=== PATIENT | male | born 1990 | race Two or more races ===

== ENCOUNTER 2024-11-13 22:20 | Inpatient (IN) | payer MEDICAID, SELFPAY ==
[2024-11-13 22:22] VITALS: BMI 21.7
[2024-11-13 22:38] VITALS: BP 107/67; PULSE 106; RESP 20; TEMP 36.5; O2SAT 98
--- NOTE | 2024-11-13 22:50 | XR_ITS ---
Examination: Toes, left foot fourth digit 3 views Technique: Toes AP oblique lateral 3 views left foot fourth digit Date and time of exam: November 13, 2024 11:55 PM INDICATIONS: Redness swelling and pain involving the fourth digit today FINDINGS: Prominent bone destruction distal phalanx fourth digit No foreign body IMPRESSION: Osteomyelitis distal phalanx fourth digit
--- NOTE | 2024-11-13 22:50 | EKG_ITS ---
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
--- NOTE | 2024-11-13 22:50 | XR_ITS ---
Examination: AP chest single view TECHNIQUE: Portable AP upright chest single view Date and time: November 13, 2024, 11:50 PM INDICATIONS: Chest pain weakness today. FINDINGS: Normal heart size. The lungs are clear. The osseous structures are intact. IMPRESSION: No active disease.
--- NOTE | 2024-11-13 22:52 | EDRME_ITS ---
Rapid Medical Screening Exam [facility] Arrival date/time: 11/13/24 22:20 34M with no significant PMH presents to ED with 1 week of L ring toe pain and non-healing wound after something fell on it. Patient has not had a tetanus shot in the past 5 years. Patient now also has MOSQUERA, dizzines, fevers/chills, CP, and SOB. Patient denies URI symptoms. Patient states strong family history of DM and he thinks he has it too, but he doesn't go to any PCP. Chief Complaint: General Adult/Misc Complain Vital signs: Vital Signs Temperature 97.7 F 11/13/24 22:38 Pulse Rate 106 H 11/13/24 22:38 Respiratory Rate 20 11/13/24 22:38 Blood Pressure 107/67 11/13/24 22:38 Pulse Oximetry (%) 98 11/13/24 22:38 Oxygen Delivery Method Room Air 11/13/24 22:38
[2024-11-13 23:26] LABS: Lactate (Lactic Acid) 1.8 mMol/L (0.4-2.0)
[2024-11-13] MEDS: DIPHTH,PERTUSS(ACELL),TET VAC 0.5 ML SYR- ADULT IMi (23:36)
[2024-11-13 23:38] LABS: Basophils # (Auto) 0.0 Thou/mm3 (0.0-0.2); Basophils % (Auto) 0 % (0-2.5); Eosinophils # (Auto) 0.0 Thou/mm3 (0.0-0.5); Eosinophils % (Auto) 0 % (0-10); Hematocrit 34.2 % (41.0-53.0); Hemoglobin 12.6 g/dL (13.5-16.0); Immature Granulocytes Auto 0.04 Thou/mm3 (0.00-0.00); Lymphocytes # (Auto) 1.5 Thou/mm3 (1.0-4.8); Lymphocytes % (Auto) 14 % (10-50); Mean Corpuscular HGB Conc 36.8 g/dl (31.0-37.0); Mean Corpuscular Hemoglobin 29.1 pg (25.0-35.0); Mean Corpuscular Volume 79 fL (80-100); Monocytes # (Auto) 0.8 Thou/mm3 (0.0-0.8); Monocytes % (Auto) 7 % (0-12); Neutrophils # (Auto) 8.2 Thou/mm3 (1.8-7.7); Neutrophils % (Auto) 78 % (37-80); Nucleated Red Blood Cell # 0.00 Thou/mm3 (0.00-0.00); Nucleated Red Blood Cell % 0 /100 WBC (0); Platelet Count 360 Thou/mm3 (140-440); RDW Standard Deviation 33.3 fL (35.1-43.9); Red Blood Count 4.33 Miln/mm3 (4.50-5.90); White Blood Count 10.5 Thou/mm3 (3.8-10.6)
[2024-11-13 23:48] LABS: Glucose Estimated Average 278 mg/dL (80-131); Hemoglobin A1C 11.3 % Hgb (4.8-6.0)
[2024-11-14] VITALS (18 sets, daily range): BP systolic 99–149; BP diastolic 61–101; PULSE 81–108; RESP 12–100; TEMP 36.1–37.8; O2SAT 96–100; BMI 24.2; BMI 24.1
[2024-11-14 00:03] LABS: Alanine Aminotransferase 11 U/L (10-49); Albumin, Serum 4.4 gm/dL (3.5-5.0); Albumin/Globulin Ratio 1.4 (1.2-2.2); Alcohol, Blood Medical < 3.0 mg/dL (0-10.0); Alkaline Phosphatase 103 U/L (46-116); Anion Gap 10 (7-16); Aspartate Amino Transferase 13 U/L (0-34); BUN/Creatinine Ratio 12 Ratio (12-20); Bilirubin,Total 0.8 mg/dL (0.3-1.2); Blood Urea Nitrogen 19 mg/dL (9-23); C-Reactive Protein 2.8 mg/dL (0.0-0.9); Calcium 9.8 mg/dL (8.3-10.6); Calcium (Corrected) 9.8 mg/dL (8.5-10.1); Carbon Dioxide 25.6 mMol/L (20.0-31.0); Chloride 96 mMol/L (98-107); Creatinine (Component) 1.6 mg/dL (0.6-1.3); Estimated Creatinine Clearance 66.8 mL/min (>60); Globulin 3.1 gm/dL (2.3-3.5); Glucose 359 mg/dL (74-106); Osmolality,Calculated 280 (275-295); Potassium 4.0 mMol/L (3.4-5.1); Procalcitonin 0.07 ng/ml (0.0-0.49); Sodium 132 mMol/L (136-145); Total Protein 7.5 gm/dL (5.7-8.2); Troponin I < 0.020 ng/mL (0.0-0.045); eGFR 58 See Note
[2024-11-14 00:15] LABS: Sed Rate (ESR) 64 mm/hr (0-15)
--- NOTE | 2024-11-14 01:33 | PD.EDHA ---
ED Headache RME/HPI General Chief Complaint: General Adult/Misc Complain Stated Complaint: HEADACHE,DIZZY,BODYACHES, LEFT FOOT PAIN Arrival date/time: 11/13/24 22:20 RME / HPI RME / HPI Narrative: 11/13/24 22:20 34M with no significant PMH presents to ED with 1 week of L ring toe pain and non-healing wound after something fell on it. Patient has not had a tetanus shot in the past 5 years. Patient now also has MOSQUERA, dizzines, fevers/chills, CP, and SOB. Patient denies URI symptoms. Patient states strong family history of DM and he thinks he has it too, but he doesn't go to any PCP. Dr. Blanton?s Main ED Evaluation: 34yo male presents to the ED for a chief complaint of non-healing wound to his left 4th toe. Patient states he fell last week and has since had a wound to his left 4th toe that won't heal. Patient endorses having pus and bloody drainage from the toe. Patient has had subjective fevers, chills, and sweating for the last 4 days. Familial history of DM. Denies any N/V or any other associated symptoms. NKA. Related Data Allergies Allergy/AdvReac Type Severity Reaction Status Date / Time No Known Allergies Allergy Verified 11/13/24 22:22 Review of Systems Review of Systems Systems Reviewed: All systems reviewed, normal except as documented Past Medical History Social History SMOKING STATUS: Never smoker ED Exam Narrative Physical exam: GENERAL APPEARANCE: alert and oriented x 4, well-developed, well-nourished, no acute distress VITALS: All vitals were reviewed and the pulse ox is 98% on room air, which is normal according to my interpretation. HEENT: Normocephalic, atraumatic; pupils equal, round, reactive to light; EOMI; mucous membranes pink, moist; oropharynx clear NECK: Supple LUNGS: CTABL; no wheezes, no rales, no rhonchi HEART: Regular rate, regular rhythm; normal S1, S2; no murmurs ABDOMEN: non distended; normal BS; soft, no tenderness, no guarding, no rebound; no masses, no organomegaly, no hernia BACK: no CVA tenderness EXTREMITIES: macerated erythematous, edematous left 4th toe; no edema NEUROLOGIC: awake; alert and oriented x4; cranial nerves II-XII grossly intact; no focal sensory or motor deficits PSYCHIATRIC: appropriate mood and affect SKIN: warm, dry, normal color; no rashes Course Quality Measures none Orders Category Date Time Status EKG (ED ONLY) *Do not use* NOW Care 11/13/24 22:51 Completed Insert IV NOW Care 11/13/24 22:50 Active Wound Care NOW Care 11/13/24 22:54 Active EKG (ED Only) Stat Exams 11/13/24 22:50 Draft XR chest 1V portable Stat Exams 11/13/24 22:50 Taken XR toe LT min 2V Stat Exams 11/13/24 22:50 Taken A1C [Glycohemoglobin w (eAG)] Stat Lab 11/13/24 23:12 Completed Alcohol, Blood Medical Stat Lab 11/13/24 23:12 Completed Blood Culture (Lab) Stat Lab 11/13/24 23:16 Received CBC Stat Lab 11/13/24 23:12 Completed CMP [Comprehensive Metabolic Panel] Stat Lab 11/13/24 23:12 Completed CRP [C-Reactive Protein] Stat Lab 11/13/24 23:12 Completed Drug Screen,Urine Stat Lab 11/13/24 01:37 Received ESR [Sed Rate (ESR)] Stat Lab 11/13/24 23:12 Completed Lactate (Lactic Acid) Stat Lab 11/13/24 23:12 Completed Procalcitonin Stat Lab 11/13/24 23:12 Completed Troponin I Stat Lab 11/13/24 23:12 Completed TET,DIP/PERT AC (Adult)-Tdap [Boostrix Adult (Tdap) Med 11/13/24 22:50 Discontinued Vacc] 0.5 ml IMI .ONCE ONE Vital Signs Vital signs: Vital Signs Temperature 97.7 F 11/13/24 22:38 Pulse Rate 106 H 11/13/24 22:38 Respiratory Rate 20 11/13/24 22:38 Blood Pressure 107/67 11/13/24 22:38 Pulse Oximetry (%) 98 11/13/24 22:38 Oxygen Delivery Method Room Air 11/13/24 22:38 Headache MDM Narrative MDM Narrative:: Scribe Attestation: 11/14/24 Mei Flores am scribing for and in the presence of Dr. Blanton. Patient data External records reviewed:: [facility] previous records (Per chart review, patient has no previous ED visits or admissions to this facility.) Clinical information provided by:: patient Social determinants that could affect healthcare access:: none Patient has the following chronic illnesses:: none How is presenting disease/condition affected by chronic disease/condition?: no chronic disease Evaluation data The following diagnostics were reviewed and interpreted by me:: lab results and radiology exam(s) Lab and/or radiology exams considered but not ordered:: none Interpretation Summary: CBC normal, ESR 64, Sodium 132, Creatinine 1.6, Glucose 259, A1c 11.3, CRP 2.8, Lactic Acid normal, Procalcitonin normal. Left toe x-ray shows bone destruction of the distal phalanx of the 4th toe, no fracture, no dislocation, according to my interpretation. CXR is negative for any infiltrates, cardiomegaly, pleural effusions or any other acute cardiopulmonary findings, according to my interpretation. EKG done at 2340, sinus tachycardia, rate of 105, normal intervals, normal axis, no acute ischemia, according to my interpretation. Medications / Prescriptions Medications or Prescriptions considered but not ordered:: none Medication administrations:: Medication Administration History Discontinued Medications Diphtheria/Tetanus/Acell Pertussis (Diphth,Pertuss(Acell),Tet Vac 0.5 Ml Syr- Adult) 0.5 ml IMi .ONCE ONE Stop: 11/13/24 22:51 Last Admin: 11/13/24 23:36 Dose: 0.5 ml Documented By: see above Consultations Consultation(s) initiated? (list below): Yes Consultation #1 (Physician, Specialty, Details): Discussed case with the resident physician, attending Dr. Gross from Hospitalist service regarding admission. Discussed patients ED course, exam findings, labs, and radiology results. The Hospitalist agrees to accept the patient for admission. Time: 01:58 Diagnosis Differential diagnosis headache: other (osteomyelitis, cellulitis, gangene) Most likely diagnosis given after review of the tests above:: see clinical impression below Admission Indicated Admission indicated?: indicated Admission Request Was there a request for admission?: Yes Admission Attestation Admission request attestation: Discussed case with [] from Hospitalist service regarding admission. Discussed patients ED course, exam findings, labs, and radiology results. The Hospitalist [agrees,declines] to accept the patient for admission. Disposition Plan Disposition Plan: Admit Discharge Plan Plan Patient Disposition: Admit Acute Care w/in Hospital Prescriptions/Referrals Referrals: No Primary/Family,Physician [Primary Care Provider] - In 1 week Problem List Clinical Impression: Diabetic foot ulcer, Osteomyelitis Patient/Caregiver Discharge Instructions Print Language: Divehi Stand Alone Forms: [facility] Award Info., Patient Portal Info Letter
[2024-11-14 01:57] LABS: Amphetamine/Methamp Scrn,U Negative (Negative); Barbiturate Screen,Urine Negative (Negative); Benzodiazepines Screen,Urine Negative (Negative); Benzoylecgonine Screen, Ur Negative (Negative); Fentanyl Screen,Urine Negative (Negative); Opiate Screen,Urine Negative (Negative); THC Screen,Urine Negative (Negative)
[2024-11-14] MEDS: PIPER/TAZO 3.375 GM PREMIX 3.375 GM/50 ML BAG IV ×4 (02:18→22:12)
[2024-11-14] MEDS: SODIUM CHLORIDE 0.9% 1000 ML 1,000 ML 999 ML IV (02:20)
--- NOTE | 2024-11-14 02:21 | PD.RESHP ---
Documentation for date of: 11/14/24 HPI History of Present Illness Chief complaint: Diabetic foot infection History of present illness: 34-year-old male with no past medical history who presented to the ED due to a wound on his foot. Patient states that he was at work and a box fell on his left lower extremity. He has had things fall on his foot before and states that usually heals pretty quickly however this time he noticed that the wound has not been healing appropriately and is beginning to smell developing blisters. He states he barely felt it and ignored it but then later he noticed his toes were getting red and swollen and then on he started developing fevers and chills as well as nausea and pain in the extremity described as stabbing like. He states that to the continued swelling he is unable to bear weight or put pressure on the left foot. He also endorses having headaches, shortness of breath and some blurry vision. However denies any palpitations, chest pain, sick contacts, recent travel, vomiting, abdominal pain. When asked about diabetes patient states he has never been tested for it or for any other medical conditions. Here in the ED patient was found with an A1c of 11.3. ED course: ED vitals: BP 107/67, HR 106, saturating 98% on room air ED labs: Microcytic anemia, ESR 64, sodium 132, chloride 96, creatinine 1.6, glucose 359, A1c 11.3, CRP 2.8, Pro-Derek negative. Foot x-ray seems to be cortical bone destruction of 5th and 4th metatarsal per my interpretation Chest x-ray no active disease, EKG sinus rhythm PMHx: As above SX Hx: None Social Hx: Denies cigarette use, denies alcohol use, denies illicit substances including THC FH X: Unknown Review of Systems Review of Systems Systems Reviewed: All systems reviewed, normal except as documented Narrative Review of Systems: All 12 systems reviewed and found negative unless otherwise stated in HPI. Exam Vital Signs Temp Pulse Resp BP Pulse Ox O2 Del Method 98.8 F 101 H 18 131/84 H 99 Room Air 11/14/24 01:40 11/14/24 01:40 11/14/24 01:40 11/14/24 01:40 11/14/24 01:40 11/14/24 01:40 Narrative Exam Physical Exam GENERAL: NAD, AAOx3 HEENT: Moist mucosa. Eyes open, symmetrical, & clear CARDIO: Heart RRR, no obvious murmurs PULM: No noted coughing/dyspnea CTA B/L, no R/W/R GI: Abdomen soft, nondistended, no pain on palpation. BSx4 SKIN/MSK/EXT: Left lower extremity 4th and 5th metatarsals look necrotic, with blisters and pus around the toes, no pain on palpation. Pedal pulses present B/L NEURO: AAOx3, no focal neuro deficits, able to move all 4 extremities Results: Labs 11/14/24 04:10 11/14/24 04:10 Labs: Short CBC 11/13/24 Range/Units 23:12 WBC 10.5 (3.8-10.6) Thou/mm3 Hgb 12.6 L (13.5-16.0) g/dL Hct 34.2 L (41.0-53.0) % Plt Count 360 (140-440) Thou/mm3 BMP 11/13/24 23:12 Sodium 132 L Potassium 4.0 Chloride 96 L Carbon Dioxide 25.6 BUN 19 Creatinine 1.6 H Glucose 359 H Calcium 9.8 Cardiac Enzymes 11/13/24 Range/Units 23:12 Troponin I < 0.020 (0.0-0.045) ng/mL Liver Function 11/13/24 Range/Units 23:12 Total Bilirubin 0.8 (0.3-1.2) mg/dL AST 13 (0-34) U/L ALT 11 (10-49) U/L Alkaline Phosphatase 103 (46-116) U/L Albumin 4.4 (3.5-5.0) gm/dL Quality Measures Quality Measures none Medications Home Medications and Allergies Allergies Allergy/AdvReac Type Severity Reaction Status Date / Time No Known Allergies Allergy Verified 11/13/24 22:22 Visit Medications Acetaminophen (Acetaminophen 325 Mg Tablet) 650 mg PO Q6H PRN PRN Reason: Fever >99.5 Stop: 12/14/24 02:18 Acetaminophen (Acetaminophen 325 Mg Tablet) 1,000 mg PO Q6H PRN PRN Reason: PAIN SCALE 1-3 (mild Stop: 12/14/24 02:18 Dextrose (Dextrose 50%-Water Inj 50 Ml Syringe) 25 ml IV Q15MIN PRN PRN Reason: BG 50-70 responsive npo pt Stop: 12/14/24 02:15 Dextrose (Dextrose 50%-Water Inj 50 Ml Syringe) 50 ml IV Q15MIN PRN PRN Reason: BG <50 OR BG <70 & pt unresponsive Stop: 12/14/24 02:15 Glucagon (Glucagon Inj 1 Mg Vial) 1 mg IM Q15MIN PRN PRN Reason: BG <70, and no IV access Vancomycin HCl 1,000 mg/ (Sodium Chloride) 250 mls @ 150 mls/hr IV X1 ONE Stop: 11/14/24 03:35 Piperacillin/Tazobactam/Dextrose (Zosyn) 3.375 gm in 50 mls @ 100 mls/hr IV X1 ONE Stop: 11/14/24 02:25 Last Admin: 11/14/24 02:18 Dose: 100 mls/hr Sodium Chloride (Ns) 1,000 mls @ 999 mls/hr IV .Q1H1M ONE Stop: 11/14/24 02:57 Last Admin: 11/14/24 02:20 Dose: 999 mls/hr Piperacillin/Tazobactam/Dextrose (Zosyn) 50 mls @ 100 mls/hr IV Q8HR JESSICA Stop: 11/21/24 02:16 Sodium Chloride (Ns) 1,000 mls @ 100 mls/hr IV .Q10H JESSICA Stop: 11/14/24 12:29 Insulin Human Lispro (Insulin Lispro (Admelog) 1 Unit/0.01 Ml Unit) 0 unit SC AC JESSICA; Protocol Stop: 12/14/24 07:29 Morphine Sulfate (Morphine Sulf Inj 10 Mg/Ml Vial) 2 mg IVP Q4H PRN PRN Reason: PAIN SCALE 4-10(Mod-Sev Stop: 11/19/24 02:18 Ondansetron HCl (Ondansetron Inj 2 Mg/Ml Inj 2 Ml) 4 mg IVP Q6H PRN; Protocol PRN Reason: NAUSEA OR VOMITING Stop: 12/14/24 02:18 Pharmacy Consult (Vancomycin Pharmacy To Dose 1 Each Each) 1 each IV QDAY JESSICA Stop: 12/14/24 08:59 Discontinued Medications Diphtheria/Tetanus/Acell Pertussis (Diphth,Pertuss(Acell),Tet Vac 0.5 Ml Syr- Adult) 0.5 ml IMi .ONCE ONE Stop: 11/13/24 22:51 Last Admin: 11/13/24 23:36 Dose: 0.5 ml Assessment & Plan Plan 34-year-old male with past medical history that was stated above who presented to the ED with left foot infection. #Diabetic foot infection #?Osteomyelitis of fourth metatarsal Patient had a box fall on his foot became red and swollen and was not healing appropriately, he states he has had injuries on his foot before and it healed just fine however this time it was not healing appropriately Swelling and redness has gotten so bad that he is unable to put pressure on it Patient discovered he was diabetic here in the ER. Per foot x-ray ? Vancomycin ? Zosyn ? Follow-up cultures ? IV fluids ? Surgery consulted, appreciate recs #New onset diabetes mellitus type 2 Last A1c: 11.3 ? SSI ? Hypoglycemia protocol in place ? Registered dietitian consult ? Diabetic counseling #Acute Kidney injury ? on IVF ? Avoid nephrotoxins ? Renally dose medications Health Maintenance: Disposition: MedSurg Fluids: NS Feeding: N.p.o. Thrombo prophylaxis: SCDs Gastric Ulcer prophylaxis: Not indicated CODE STATUS: DNR Case discussed with my attending Dr. Abhi Sanchez MD PGY-1 Disclaimer: Despite multiple revisions, due to the dictation software being used, the document bellow may not be free of grammatical errors including phonetic/typographic errors. However, this does not deter from our commitment to providing health care in the patient's best interest in mind. Attending Provider Attestation/Addendum 34-year-old male patient with newly diagnosed diabetes mellitus, DANIAL was admitted for diabetic foot infection osteomyelitis involving the left fourth metatarsal. Patient will receive IV antibiotic treatment. Diabetes education to be provided. I discussed with and supervised the resident physician who took care of this patient. I agree with the assessment and plan as above.
[2024-11-14] MEDS: Vancomycin Inj 1,000 MG in SODIUM CHLORIDE 0.9% 250 ML 250 ML 150 MG IV (02:38)
[2024-11-14] MEDS: ACETAMINOPHEN 325 MG TABLET 650 MG PO ×2 (02:45→19:22)
[2024-11-14] MEDS: SODIUM CHLORIDE 0.9% 1000 ML 1,000 ML 100 ML IV (02:45)
[2024-11-14 04:41] LABS: Basophils # (Auto) 0.0 Thou/mm3 (0.0-0.2); Basophils % (Auto) 0 % (0-2.5); Eosinophils # (Auto) 0.1 Thou/mm3 (0.0-0.5); Eosinophils % (Auto) 1 % (0-10); Hematocrit 31.2 % (41.0-53.0); Hemoglobin 11.6 g/dL (13.5-16.0); Immature Granulocytes Auto 0.03 Thou/mm3 (0.00-0.00); Lymphocytes # (Auto) 2.1 Thou/mm3 (1.0-4.8); Lymphocytes % (Auto) 24 % (10-50); Mean Corpuscular HGB Conc 37.2 g/dl (31.0-37.0); Mean Corpuscular Hemoglobin 29.3 pg (25.0-35.0); Mean Corpuscular Volume 79 fL (80-100); Monocytes # (Auto) 0.9 Thou/mm3 (0.0-0.8); Monocytes % (Auto) 10 % (0-12); Neutrophils # (Auto) 5.8 Thou/mm3 (1.8-7.7); Neutrophils % (Auto) 65 % (37-80); Nucleated Red Blood Cell # 0.00 Thou/mm3 (0.00-0.00); Nucleated Red Blood Cell % 0 /100 WBC (0); Platelet Count 334 Thou/mm3 (140-440); RDW Standard Deviation 33.2 fL (35.1-43.9); Red Blood Count 3.96 Miln/mm3 (4.50-5.90); White Blood Count 9.0 Thou/mm3 (3.8-10.6)
[2024-11-14 05:03] LABS: Alanine Aminotransferase 9 U/L (10-49); Albumin, Serum 4.0 gm/dL (3.5-5.0); Albumin/Globulin Ratio 1.7 (1.2-2.2); Alkaline Phosphatase 89 U/L (46-116); Anion Gap 9 (7-16); Aspartate Amino Transferase 12 U/L (0-34); BUN/Creatinine Ratio 16 Ratio (12-20); Bilirubin,Total 0.7 mg/dL (0.3-1.2); Blood Urea Nitrogen 19 mg/dL (9-23); Calcium 9.0 mg/dL (8.3-10.6); Calcium (Corrected) 9.0 mg/dL (8.5-10.1); Carbon Dioxide 26.6 mMol/L (20.0-31.0); Chloride 97 mMol/L (98-107); Creatinine (Component) 1.2 mg/dL (0.6-1.3); Estimated Creatinine Clearance 89.0 mL/min (>60); Globulin 2.3 gm/dL (2.3-3.5); Glucose 268 mg/dL (74-106); Magnesium 1.9 mg/dL (1.6-2.6); Osmolality,Calculated 277 (275-295); Potassium 3.5 mMol/L (3.4-5.1); Sodium 133 mMol/L (136-145); Total Protein 6.3 gm/dL (5.7-8.2); eGFR > 60 See Note
--- NOTE | 2024-11-14 08:50 | PD.SURCONS ---
HPI Consult details History of present illness: 34M presented with no known PMH with swelling and discoloration of left fourth toe and findings of A1c 11. Pt states he hurt his foot a week ago and since then it has become increasingly painful and swollen prompting him to seek care in ER. He has also been feeling fever and malaise PMH: Newly diagnosed DMII PShx: None Meds: None Allergies: NKDA Social hx: Nonsmoker Family hx: DMII Review of Systems Review of Systems ROS Unobtainable: All systems reviewed & no additional complaints except as documented Meds Home Medications and Allergies Home Medications ?Medication ?Instructions ?Recorded ?Confirmed ?Type No Known Home Medications 11/14/24 11/14/24 History Allergies Allergy/AdvReac Type Severity Reaction Status Date / Time No Known Allergies Allergy Verified 11/13/24 22:22 Exam Vital Signs Temp Pulse Resp BP Pulse Ox O2 Del Method 97.0 F 81 18 126/80 99 Room Air 11/14/24 06:30 11/14/24 06:30 11/14/24 06:30 11/14/24 06:30 11/14/24 06:30 11/14/24 06:30 Constitutional Constitutional: no acute distress Routine Respiratory Exam Respiratory: Present no resp distress Routine Extremities Exam Comments: left fourth toe edematous, erythematous and with necrosis at the tip of the toe and pus expressed with palpation Results Results: Laboratory Laboratory results: results reviewed Assessment & Plan Plan 34M with newly diagnosed DMII presenting with left fourth toe infection. I explained that incision and drainage will be helpful for the wound to heal but healing will likely take weeks to months and I emphasized the importance of glucose control. Pt expressed understanding and is agreeable with this plan I&D of left fourth toe in OR this AM
--- NOTE | 2024-11-14 08:56 | PC.SS ---
Patient Alden Sow is a 34 Year old male admitted for Diabetic Food Wound. SS met with patient at bedside to discuss discharge plan and review demographic information. Patient reports he lives at home with a roommate. Patient reports that he does not utilize any source of DME, patient is able to complete all ADL's independently. Patient reports he does not have a PCP. Choice of pharmacy is [facility]. at time of discharge patient will discharge home. Discharge plan: Home Next of kin: Father, Demar Sow [phone]
--- NOTE | 2024-11-14 08:57 | PC.NURSE ---
PATIENT ALERT AND ORIENTED TRANSFER TO SURGERY VIA GURNEY.
--- NOTE | 2024-11-14 10:02 | PD.SUROPNT ---
Date of Procedure 11/14/24 Pre Op Diagnosis Left fourth toe abscess Post Op Diagnosis Same Procedure Incision and drainage of left fourth toe Findings Left fourth toe with necrotic skin and abscess Procedure Description After discussion of risks and benefits, patient was brought to the operating room and general anesthesia was induced. He had already received preoperative antibiotics and was prepped and draped in usual sterile fashion. After timeout the existing opening on the distal aspect of the left fourth toe was extended approximately with a #11 blade. There was immediate expression of pus from which a culture was taken. The wound was probed and approximately 5 cc of pus were expressed. The wound was irrigated and the necrotic skin was removed. There was no bleeding. The wound was packed with quarter inch packing and covered with Adaptic, fluffs and Kerlix. Patient was awoken and brought to PACU in stable condition Pathology / specimen Other (Wound culture) Estimated Blood Loss 5 Surgeon Brii Hernández MD Surgical Staff Operation Date: 11/14/24 09:00 <No data on this case meets the specified criteria>
--- NOTE | 2024-11-14 10:40 | SUR.PHASEI ---
0958: Pt received in [facility] via gurlemitar. Report from Rosales ARAUZ and Dario POON. Pt obtunded. Resp even, unlabored. VS stable. Dressing to left foot dry, clean, intact. 1025: Pt more awake. Responds appropriatedly to questions asked, Resp even, unlabored. VS stable. Dressing remain dry, clean, intact. Denies pain.
[2024-11-14] MEDS: VANCOMYCIN/NS 1 GM IVPB 200 ML IV ×2 (11:02→22:58)
--- NOTE | 2024-11-14 11:10 | PC.NURSE ---
PATIENT BACK FROM SURGERY ACCOMPANIED BY JOYCE ARAUZ, PT IS ALERT AND ORIENTED ABLE TO MAKE NEEDS KNOWN. DENIES PAIN AND WOULD LIKE A SNACK.
--- NOTE | 2024-11-14 11:11 | PC.NURSE ---
DRESSING IS DRY CLEAN AND INTACT.
--- NOTE | 2024-11-14 11:17 | SUR.PHASEI ---
1043: Pt awake, but drifts off to sleep. Very easily aroused. Resp even, unlabored. VS stable. Dressing remains dry, clean, intact. Denies pain. Report to Tammi ARAUZ 3rd floor. Pt transferred to Rm [id number] in stable condition.
[2024-11-14] MEDS: INSULIN LISPRO (AdmeLOG) 1 UNIT/0.01 ML UNIT SC ×3 (11:39→22:12)
--- NOTE | 2024-11-14 13:16 | ESPR_ITS ---
Documentation for date of: 11/14/24 Subjective Subjective Interval history: Overnight admission. Seen and examined at bedside and patient appears relatively comfortable and has not required any pain medication at the time evaluation. On exam, fourth toe on left lower extremity is significantly swollen and erythematous but not currently draining. General surgery consulted and plan for incision and drainage. Infectious disease also consulted and at this time we will continue with vancomycin and Zosyn and continue blood sugar control. He has remained afebrile, CBC does not show leukocytosis, and CHEM panel showed glucose 268 with hemoglobin A1c of 11.3%. Exam Vital Signs Temp Pulse Resp BP Pulse Ox O2 Del Method O2 Flow Rate 97.8 F 83 13 107/66 97 Room Air 5 11/14/24 10:35 11/14/24 10:35 11/14/24 10:35 11/14/24 10:35 11/14/24 10:35 11/14/24 08:00 11/14/24 10:15 Narrative Exam General: AOx3, no acute distress, able to speak full sentences HEENT: NC/AT, mucous membranes moist, bilateral sclera anicteric Cardiovascular: regular rate and rhythm, S1/S2 present, no murmurs appreciated Pulmonary: clear to auscultation bilaterally, no rales/rhonchi/wheezes Abdominal: soft, non-tender, non-distended, no rebound/guarding, normal bowel sounds present Musculoskeletal: normal ROM, no peripheral edema Skin: 4th toe on LLE significantly swollen and erythematous but no discharge; warm and dry, intact, no rashes Neuro: CN II-XII intact, no focal deficits Objective Labs 11/15/24 06:17 11/14/24 04:10 Labs: Laboratory Results - last 24 hr 11/13/24 11/13/24 11/14/24 01:37 23:12 04:10 WBC 10.5 9.0 RBC 4.33 L 3.96 L Hgb 12.6 L 11.6 L Hct 34.2 L 31.2 L MCV 79 L 79 L MCH 29.1 29.3 MCHC 36.8 37.2 H RDW Std Deviation 33.3 L 33.2 L Plt Count 360 334 Neut % (Auto) 78 65 Lymph % (Auto) 14 24 Reynolds % (Auto) 7 10 Eos % (Auto) 0 1 Baso % (Auto) 0 0 Neut # (Auto) 8.2 H 5.8 Lymph # (Auto) 1.5 2.1 Reynolds # (Auto) 0.8 0.9 H Eos # (Auto) 0.0 0.1 Baso # (Auto) 0.0 0.0 Immature Gran # (Auto) 0.04 H 0.03 H Absolute Nucleated RBC 0.00 0.00 Immature Gran % 0 0 Nucleated RBC % 0 0 ESR 64 H Sodium 132 L 133 L Potassium 4.0 3.5 D Chloride 96 L 97 L Carbon Dioxide 25.6 26.6 Anion Gap 10 9 BUN 19 19 Creatinine 1.6 H 1.2 Estim Creat Clear Calc 66.8 89.0 eGFR 58 L > 60 BUN/Creatinine Ratio 12 16 Glucose [address] Glu mg/dL 278 H Hemoglobin A1c 11.3 H Calculated Osmolality 280 277 Lactic Acid 1.8 Calcium 9.8 9.0 Corrected Calcium 9.8 9.0 Magnesium 1.9 Total Bilirubin 0.8 0.7 AST 13 12 ALT 11 9 L Alkaline Phosphatase 103 89 Troponin I < 0.020 C-Reactive Prot, Quant 2.8 H Total Protein 7.5 6.3 Albumin 4.4 4.0 Globulin 3.1 2.3 Albumin/Globulin Ratio 1.4 1.7 Procalcitonin 0.07 Urine Opiates Screen Negative Urine Fentanyl Screen Negative Ur Barbiturates Screen Negative U Amphetamin/Meth Scrn Negative U Benzodiazepines Scrn Negative U Cocaine Metab Screen Negative U Marijuana (THC) Screen Negative Ethyl Alcohol < 3.0 Quality Measures Quality Measures none Assessment & Plan Assessment Current Active Medications: Generic Name Dose Route Start Last Admin Trade Name Freq PRN Reason Stop Dose Admin Acetaminophen 650 mg 11/14/24 02:19 11/14/24 02:45 Acetaminophen 325 Mg Tablet PO 12/14/24 02:18 650 mg Q6H PRN Administration Fever >99.5 Acetaminophen 1,000 mg 11/14/24 02:22 Acetaminophen 500 Mg Tablet PO 12/14/24 02:21 Q6H PRN PAIN SCALE 1-3 (mild Dextrose 25 ml 11/14/24 02:16 Dextrose 50%-Water Inj 50 Ml Syringe IV 12/14/24 02:15 Q15MIN PRN BG 50-70 responsive npo pt Dextrose 50 ml 11/14/24 02:16 Dextrose 50%-Water Inj 50 Ml Syringe IV 12/14/24 02:15 Q15MIN PRN BG <50 OR BG <70 & pt unresponsive Glucagon 1 mg 11/14/24 02:16 Glucagon Inj 1 Mg Vial IM Q15MIN PRN BG <70, and no IV access Piperacillin/Tazobactam/Dextrose 3.375 gm in 50 mls @ 100 mls/hr 11/14/24 06:15 11/14/24 07:15 Zosyn IV 11/21/24 06:14 100 mls/hr Q8HR JESSICA Administration Vancomycin/Sodium Chloride 200 mls @ 120 mls/hr 11/14/24 10:00 11/14/24 11:02 Vancomycin/Ns 1 Gm Ivpb IV 11/21/24 09:59 120 mls/hr Q12H JESSICA Administration Insulin Human Lispro 0 unit 11/14/24 17:00 Insulin Lispro (Admelog) 1 Unit/0.01 Ml Unit SC 12/14/24 16:59 ACHS JESSICA Protocol Morphine Sulfate 2 mg 11/14/24 12:25 Morphine Sulf Inj 10 Mg/Ml Vial IVP 11/19/24 02:18 Q4H PRN PAIN SCALE 4-10(Mod-Sev Ondansetron HCl 4 mg 11/14/24 02:19 Ondansetron Inj 2 Mg/Ml Inj 2 Ml IVP 12/14/24 02:18 Q6H PRN NAUSEA OR VOMITING Protocol Pharmacy Consult 1 each 11/14/24 09:00 Vancomycin Pharmacy To Dose 1 Each Each IV 12/14/24 08:59 QDAY PRN PROTOCOL Plan Alden higginbotham is a 34-year-old male with no past medical history that was admitted for left foot infection/osteomyelitis of 4th digit. #Diabetic foot infection #Osteomyelitis of fourth metatarsal s/p debridement 11/14 Presents after left toe injury approximately 1 week prior to presentation. X- ray showed osteomyelitis of distal phalanx of fourth digit. S/p incision and drainage of left fourth toe with findings of necrotic skin and abscess. ? General Surgery following, appreciate recommendations ? Daily packing changes per general surgery ? Vancomycin and Zosyn (11/14-) ? Blood cultures 11/13: Pending ? Wound culture 11/14: Pending #New onset type 2 diabetes mellitus A1c 11.3%. ? SSI ? Hypoglycemia protocol in place ? Registered dietitian consult ? Diabetic counseling #Acute kidney injury, resolved ? Avoid nephrotoxins ? Renally dose medications Hospital management: Disposition: pending ID recs and follow-up cultures Diet: carb consistent Lines: PIV DVT prophylaxis: SCDs CODE STATUS: full code ----- Plan discussed with attending physician Dr. Lincoln Newman MD PGY-1 Internal Medicine Attending Provider Attestation/Addendum I have examined the patient, reviewed labs and imaging findings, discussed the case with the resident(s), and reviewed entered orders. I agree with the plan of care as outlined in this note, with these additional summaries/recommendations: Patient seen at bedside. No acute overnight events. Patient seen status post incision and drainage of left fourth toe with necrotic skin and abscess. General surgery following. Continue pain management and IV antibiotics. Follow-up blood cultures. X-ray of the left foot unfortunately shows osteomyelitis of distal phalanx fourth digit. Consult infectious disease, recommendations appreciated. Discussed with patient we will likely have to proceed with PICC line for extended course of IV antibiotics and he would like some more time to think about this. Order ESR and CRP. Patient also diagnosed with new onset diabetes mellitus type 2. He denies previously being told he has diabetes. A1c 11.3%. Start insulin sliding scale with Accu-Cheks. Target blood sugar 140-180 while hospitalized. Diabetic education. Acute kidney injury has resolved. Patient updated on the plan and agreement. All questions answered to satisfaction. Please see residents note for additional details and management. Dr. Lincoln MD
[2024-11-14] MEDS: MORPHINE SULF INJ 10 MG/ML VIAL 2 MG IVP (13:29)
--- NOTE | 2024-11-14 16:25 | PC.DIETICIAN ---
Dietitian note: Patient was educated on dietary management of diabetes; written material was provided for future reference. His phone was compatible and physician plans on sending him home with insulin. Sensor was placed on left arm. He was also given Contour Next Ez glucometer in case the sensor is not covered. *Consider prescribing a FreeStyle Nette 3 Plus sensor Thank you
[2024-11-15] VITALS (7 sets, daily range): BP systolic 107–139; BP diastolic 67–86; PULSE 68–96; RESP 18–19; TEMP 36.1–36.8; O2SAT 96–98
[2024-11-15] MEDS: PIPER/TAZO 3.375 GM PREMIX 3.375 GM/50 ML BAG IV ×2 (05:04→13:38)
[2024-11-15 06:45] LABS: Basophils # (Auto) 0.1 Thou/mm3 (0.0-0.2); Basophils % (Auto) 1 % (0-2.5); Eosinophils # (Auto) 0.1 Thou/mm3 (0.0-0.5); Eosinophils % (Auto) 1 % (0-10); Hematocrit 33.9 % (41.0-53.0); Hemoglobin 12.4 g/dL (13.5-16.0); Immature Granulocytes Auto 0.01 Thou/mm3 (0.00-0.00); Lymphocytes # (Auto) 1.0 Thou/mm3 (1.0-4.8); Lymphocytes % (Auto) 20 % (10-50); Mean Corpuscular HGB Conc 36.6 g/dl (31.0-37.0); Mean Corpuscular Hemoglobin 29.5 pg (25.0-35.0); Mean Corpuscular Volume 81 fL (80-100); Monocytes # (Auto) 0.5 Thou/mm3 (0.0-0.8); Monocytes % (Auto) 10 % (0-12); Neutrophils # (Auto) 3.5 Thou/mm3 (1.8-7.7); Neutrophils % (Auto) 68 % (37-80); Nucleated Red Blood Cell # 0.00 Thou/mm3 (0.00-0.00); Nucleated Red Blood Cell % 0 /100 WBC (0); Platelet Count 345 Thou/mm3 (140-440); RDW Standard Deviation 34.1 fL (35.1-43.9); Red Blood Count 4.20 Miln/mm3 (4.50-5.90); White Blood Count 5.1 Thou/mm3 (3.8-10.6)
[2024-11-15 07:15] LABS: Sed Rate (ESR) 59 mm/hr (0-15)
[2024-11-15] MEDS: INSULIN LISPRO (AdmeLOG) 1 UNIT/0.01 ML UNIT SC ×4 (07:33→20:28)
[2024-11-15] MEDS: INSULIN LISPRO (AdmeLOG) 1 UNIT/0.01 ML UNIT 3 UNIT SC ×3 (07:33→16:48)
[2024-11-15 07:52] LABS: Alanine Aminotransferase < 7 U/L (10-49); Albumin, Serum 4.1 gm/dL (3.5-5.0); Albumin/Globulin Ratio 1.7 (1.2-2.2); Alkaline Phosphatase 90 U/L (46-116); Anion Gap 10 (7-16); Aspartate Amino Transferase 11 U/L (0-34); BUN/Creatinine Ratio 13 Ratio (12-20); Bilirubin,Total 0.5 mg/dL (0.3-1.2); Blood Urea Nitrogen 10 mg/dL (9-23); Calcium 9.7 mg/dL (8.3-10.6); Calcium (Corrected) 9.7 mg/dL (8.5-10.1); Carbon Dioxide 28.7 mMol/L (20.0-31.0); Chloride 98 mMol/L (98-107); Creatinine (Component) 0.8 mg/dL (0.6-1.3); Estimated Creatinine Clearance 142.8 mL/min (>60); Globulin 2.4 gm/dL (2.3-3.5); Glucose 205 mg/dL (74-106); Magnesium 1.8 mg/dL (1.6-2.6); Osmolality,Calculated 278 (275-295); Phosphorous 3.7 mg/dL (2.4-5.1); Potassium 3.9 mMol/L (3.4-5.1); Sodium 137 mMol/L (136-145); Total Protein 6.5 gm/dL (5.7-8.2); eGFR > 60 See Note
[2024-11-15 08:04] LABS: C-Reactive Protein 3.3 mg/dL (0.0-0.9)
[2024-11-15] MEDS: INSULIN GLARGINE (Lantus) 5 UNIT/0.05 ML (PER 5 UNITS) 15 UNIT SC (09:23)
--- NOTE | 2024-11-15 10:39 | ESPR_ITS ---
Documentation for date of: 11/15/24 Subjective Subjective Interval history: No acute overnight events. Seen and examined at bedside after I&D and patient states that he is tolerating well as he has no pain. However, he states that he has felt warm and experienced some episodes of chills. No recorded fevers and no leukocytosis at this time. Other labs unremarkable other than glucose of 205. Bedside sugars in the low 200s, started on glargine 15 daily and 3 units 3 times daily with meals. Pending ID recs and at this time we will de-escalate to ceftriaxone/doxycycline. Blood cultures no growth to date, surgical wound culture showing 1+ GPC on Gram stain. Exam Vital Signs Temp Pulse Resp BP Pulse Ox O2 Del Method O2 Flow Rate 98.3 F 78 18 129/81 97 Room Air 5 11/15/24 04:00 11/15/24 04:00 11/15/24 04:00 11/15/24 04:00 11/15/24 04:00 11/15/24 04:00 11/14/24 10:15 Narrative Exam General: AOx3, no acute distress, able to speak full sentences HEENT: NC/AT, mucous membranes moist, bilateral sclera anicteric Cardiovascular: regular rate and rhythm, S1/S2 present, no murmurs appreciated Pulmonary: clear to auscultation bilaterally, no rales/rhonchi/wheezes Abdominal: soft, non-tender, non-distended, no rebound/guarding, normal bowel sounds present Musculoskeletal: normal ROM, no peripheral edema Skin: RLE wrapped s/p I&D; warm and dry, intact, no rashes Neuro: CN II-XII intact, no focal deficits Objective Labs 11/16/24 04:24 11/16/24 04:24 Labs: Laboratory Results - last 24 hr 11/15/24 06:17 WBC 5.1 D RBC 4.20 L Hgb 12.4 L Hct 33.9 L MCV 81 MCH 29.5 MCHC 36.6 RDW Std Deviation 34.1 L Plt Count 345 Neut % (Auto) 68 Lymph % (Auto) 20 [place] % (Auto) 10 Eos % (Auto) 1 Baso % (Auto) 1 Neut # (Auto) 3.5 Lymph # (Auto) 1.0 [place] # (Auto) 0.5 Eos # (Auto) 0.1 Baso # (Auto) 0.1 Immature Gran # (Auto) 0.01 H Absolute Nucleated RBC 0.00 Immature Gran % 0 Nucleated RBC % 0 ESR 59 H Sodium 137 Potassium 3.9 Chloride 98 Carbon Dioxide 28.7 Anion Gap 10 BUN 10 Creatinine 0.8 Estim Creat Clear Calc 142.8 eGFR > 60 BUN/Creatinine Ratio 13 Glucose 205 H D Calculated Osmolality 278 Calcium 9.7 Corrected Calcium 9.7 Phosphorus 3.7 Magnesium 1.8 Total Bilirubin 0.5 AST 11 ALT < 7 L Alkaline Phosphatase 90 C-Reactive Prot, Quant 3.3 H Total Protein 6.5 Albumin 4.1 Globulin 2.4 Albumin/Globulin Ratio 1.7 Quality Measures Quality Measures none Assessment & Plan Assessment Current Active Medications: Generic Name Dose Route Start Last Admin Trade Name Freq PRN Reason Stop Dose Admin Acetaminophen 650 mg 11/14/24 02:19 11/14/24 19:22 Acetaminophen 325 Mg Tablet PO 12/14/24 02:18 650 mg Q6H PRN Administration Fever >99.5 Acetaminophen 1,000 mg 11/14/24 02:22 Acetaminophen 500 Mg Tablet PO 12/14/24 02:21 Q6H PRN PAIN SCALE 1-3 (mild Dextrose 25 ml 11/14/24 02:16 Dextrose 50%-Water Inj 50 Ml Syringe IV 12/14/24 02:15 Q15MIN PRN BG 50-70 responsive npo pt Dextrose 50 ml 11/14/24 02:16 Dextrose 50%-Water Inj 50 Ml Syringe IV 12/14/24 02:15 Q15MIN PRN BG <50 OR BG <70 & pt unresponsive Glucagon 1 mg 11/14/24 02:16 Glucagon Inj 1 Mg Vial IM Q15MIN PRN BG <70, and no IV access Piperacillin/Tazobactam/Dextrose 3.375 gm in 50 mls @ 100 mls/hr 11/14/24 06:15 11/15/24 05:04 Zosyn IV 11/21/24 06:14 100 mls/hr Q8HR JESSICA Administration Vancomycin/Sodium Chloride 200 mls @ 120 mls/hr 11/14/24 10:00 11/14/24 22:58 Vancomycin/Ns 1 Gm Ivpb IV 11/21/24 09:59 120 mls/hr Q12H JESSICA Administration Insulin Glargine 10 unit 11/16/24 09:00 Insulin Glargine (Lantus) 5 Unit/0.05 Ml (Per 5 Units) SC 12/16/24 08:59 QDAY JESSICA Insulin Human Lispro 0 unit 11/14/24 23:07 11/15/24 07:33 Insulin Lispro (Admelog) 1 Unit/0.01 Ml Unit SC 12/14/24 16:59 4 unit ACHS JESSICA Administration Protocol Insulin Human Lispro 3 unit 11/15/24 08:00 11/15/24 07:33 Insulin Lispro (Admelog) 1 Unit/0.01 Ml Unit SC 12/15/24 07:59 3 unit TIDWM JESSICA Administration Morphine Sulfate 2 mg 11/14/24 12:25 11/14/24 13:29 Morphine Sulf Inj 10 Mg/Ml Vial IVP 11/19/24 02:18 2 mg Q4H PRN Administration PAIN SCALE 4-10(Mod-Sev Ondansetron HCl 4 mg 11/14/24 02:19 Ondansetron Inj 2 Mg/Ml Inj 2 Ml IVP 12/14/24 02:18 Q6H PRN NAUSEA OR VOMITING Protocol Pharmacy Consult 1 each 11/14/24 09:00 Vancomycin Pharmacy To Dose 1 Each Each IV 12/14/24 08:59 QDAY PRN PROTOCOL Plan Alden higginbotham is a 34-year-old male with no past medical history that was admitted for left foot infection/osteomyelitis of 4th digit. #Diabetic foot infection #Osteomyelitis of fourth metatarsal s/p debridement 11/14 Presents after left toe injury approximately 1 week prior to presentation. X- ray showed osteomyelitis of distal phalanx of fourth digit. S/p incision and drainage of left fourth toe with findings of necrotic skin and abscess. Vancomycin and Zosyn (11/14-11/15) ? General Surgery following, appreciate recommendations ? Daily packing changes per general surgery ? Ceftriaxone 2 g daily and doxycycline (11/15-) ? Blood cultures 11/13: GPC on gram stain ? Wound culture 11/14: Pending ? Given IR not present on weekends, PICC line placement Sunday #New onset type 2 diabetes mellitus A1c 11.3%. ? Glargine 10 units, lispro 3 units TIDWM ? SSI ? Hypoglycemia protocol in place ? Registered dietitian consult ? Diabetic counseling #Acute kidney injury, resolved ? Avoid nephrotoxins ? Renally dose medications Hospital management: Disposition: pending ID recs and follow-up cultures Diet: carb consistent Lines: PIV DVT prophylaxis: SCDs CODE STATUS: full code ----- Plan discussed with attending physician Dr. Lincoln Newman MD PGY-1 Internal Medicine Attending Provider Attestation/Addendum I have examined the patient, reviewed labs and imaging findings, discussed the case with the resident(s), and reviewed entered orders. I agree with the plan of care as outlined in this note, with these additional summaries/recommendations: Patient seen at bedside. No acute overnight events. Patient has no acute complaints today. He states he received education on glucometer and freestyle terry's. Discussed with patient that overall his blood sugars are improving. Patient status post incision and drainage of left fourth toe with necrotic skin and abscess. General surgery following. Continue pain management and IV antibiotics. Intraoperative cultures pending and blood cultures preliminarily negative at 24 hours. X-ray of the left foot unfortunately shows osteomyelitis of distal phalanx fourth digit. Consult infectious disease, recommendations appreciated. Discussed with patient we will likely have to proceed with PICC line for extended course of IV antibiotics. ESR 64 and CRP 3.3. Patient also diagnosed with new onset diabetes mellitus type 2. He denies previously being told he has diabetes in the past. A1c 11.3%. Continue insulin sliding scale with Accu-Cheks. Target blood sugar 140-180 while hospitalized. Diabetic education. Acute kidney injury has resolved. Patient updated on the plan and agreement. All questions answered to satisfaction. Please see residents note for additional details and management. Dr. Lincoln MD
[2024-11-15 10:42] LABS: Vancomycin,Trough 7.1 mcg/mL (5.0-10.0)
[2024-11-15] MEDS: VANCOMYCIN/NS 1 GM IVPB 200 ML IV (11:56)
[2024-11-15] MEDS: cefTRIAXone/D5w 1gm IV premix 1 GM/50 ML BAG IV (20:28)
[2024-11-15] MEDS: DOXYCYCLINE INJ 100 MG in SODIUM CHLORIDE 0.9% (POP) 100 ML IV (21:44)
[2024-11-16 04:00] VITALS: BP 115/84; PULSE 80; RESP 18; TEMP 36.2; O2SAT 97
[2024-11-16 05:58] LABS: Basophils # (Auto) 0.0 Thou/mm3 (0.0-0.2); Basophils % (Auto) 1 % (0-2.5); Eosinophils # (Auto) 0.1 Thou/mm3 (0.0-0.5); Eosinophils % (Auto) 1 % (0-10); Hematocrit 36.1 % (41.0-53.0); Hemoglobin 12.6 g/dL (13.5-16.0); Immature Granulocytes Auto 0.01 Thou/mm3 (0.00-0.00); Lymphocytes # (Auto) 2.0 Thou/mm3 (1.0-4.8); Lymphocytes % (Auto) 36 % (10-50); Mean Corpuscular HGB Conc 34.9 g/dl (31.0-37.0); Mean Corpuscular Hemoglobin 28.8 pg (25.0-35.0); Mean Corpuscular Volume 83 fL (80-100); Monocytes # (Auto) 0.8 Thou/mm3 (0.0-0.8); Monocytes % (Auto) 14 % (0-12); Neutrophils # (Auto) 2.7 Thou/mm3 (1.8-7.7); Neutrophils % (Auto) 48 % (37-80); Nucleated Red Blood Cell # 0.00 Thou/mm3 (0.00-0.00); Nucleated Red Blood Cell % 0 /100 WBC (0); Platelet Count 374 Thou/mm3 (140-440); RDW Standard Deviation 34.5 fL (35.1-43.9); Red Blood Count 4.37 Miln/mm3 (4.50-5.90); White Blood Count 5.6 Thou/mm3 (3.8-10.6)
[2024-11-16 06:46] LABS: Alanine Aminotransferase 14 U/L (10-49); Albumin, Serum 4.0 gm/dL (3.5-5.0); Albumin/Globulin Ratio 1.3 (1.2-2.2); Alkaline Phosphatase 85 U/L (46-116); Anion Gap 7 (7-16); Aspartate Amino Transferase 19 U/L (0-34); BUN/Creatinine Ratio 10 Ratio (12-20); Bilirubin,Total 0.3 mg/dL (0.3-1.2); Blood Urea Nitrogen 9 mg/dL (9-23); Calcium 9.5 mg/dL (8.3-10.6); Calcium (Corrected) 9.5 mg/dL (8.5-10.1); Carbon Dioxide 30.3 mMol/L (20.0-31.0); Chloride 103 mMol/L (98-107); Creatinine (Component) 0.9 mg/dL (0.6-1.3); Estimated Creatinine Clearance 126.9 mL/min (>60); Globulin 3.0 gm/dL (2.3-3.5); Glucose 153 mg/dL (74-106); Magnesium 1.9 mg/dL (1.6-2.6); Osmolality,Calculated 281 (275-295); Phosphorous 3.8 mg/dL (2.4-5.1); Potassium 3.8 mMol/L (3.4-5.1); Sodium 140 mMol/L (136-145); Total Protein 7.0 gm/dL (5.7-8.2); eGFR > 60 See Note
[2024-11-16] MEDS: INSULIN LISPRO (AdmeLOG) 1 UNIT/0.01 ML UNIT SC ×3 (07:57→16:50)
[2024-11-16] MEDS: INSULIN LISPRO (AdmeLOG) 1 UNIT/0.01 ML UNIT 3 UNIT SC ×3 (07:57→16:50)
[2024-11-16 08:00] VITALS: BP 100/68; PULSE 83; RESP 16; TEMP 36.2; O2SAT 96
[2024-11-16] MEDS: DOXYCYCLINE INJ 100 MG in SODIUM CHLORIDE 0.9% (POP) 100 ML IV ×2 (09:15→20:34)
[2024-11-16] MEDS: INSULIN GLARGINE (Lantus) 5 UNIT/0.05 ML (PER 5 UNITS) 10 UNIT SC (09:16)
[2024-11-16] MEDS: cefTRIAXone/D5w 1gm IV premix 1 GM/50 ML BAG IV ×2 (09:16→20:02)
--- NOTE | 2024-11-16 11:07 | PD.RESPRO ---
Documentation for date of: 11/16/24 Subjective Subjective Interval history: Patient seen and examined at bedside. No acute overnight events. Blood sugar is well-controlled, current regimen is Lantus 15 and lispro 3 3 times daily, blood culture is remains negative, will continue with Rocephin and ceftriaxone, tomorrow Dr Kapoor will evaluate the patient. Will follow-up regarding recommendations of PICC line placement versus p.o. antibiotics. For now patient is afebrile, continue IV antibiotics and wound care continue tight sugar control and pain management as needed. Exam Vital Signs Temp Pulse Resp BP Pulse Ox O2 Del Method O2 Flow Rate 97.2 F 83 16 100/68 96 Room Air 5 11/16/24 08:00 11/16/24 08:00 11/16/24 08:00 11/16/24 08:00 11/16/24 08:00 11/16/24 04:00 11/14/24 10:15 Narrative Exam General: AOx3, no acute distress, able to speak full sentences HEENT: NC/AT, mucous membranes moist, bilateral sclera anicteric Cardiovascular: regular rate and rhythm, S1/S2 present, no murmurs appreciated Pulmonary: clear to auscultation bilaterally, no rales/rhonchi/wheezes Abdominal: soft, non-tender, non-distended, no rebound/guarding, normal bowel sounds present Musculoskeletal: normal ROM, no peripheral edema Skin: RLE wrapped s/p I&D; warm and dry, intact, no rashes Neuro: CN II-XII intact, no focal deficits Objective Labs 11/17/24 04:30 11/17/24 04:30 Labs: Laboratory Results - last 24 hr 11/16/24 04:24 WBC 5.6 RBC 4.37 L Hgb 12.6 L Hct 36.1 L MCV 83 MCH 28.8 MCHC 34.9 RDW Std Deviation 34.5 L Plt Count 374 Neut % (Auto) 48 Lymph % (Auto) 36 [place] % (Auto) 14 H Eos % (Auto) 1 Baso % (Auto) 1 Neut # (Auto) 2.7 Lymph # (Auto) 2.0 [place] # (Auto) 0.8 Eos # (Auto) 0.1 Baso # (Auto) 0.0 Immature Gran # (Auto) 0.01 H Absolute Nucleated RBC 0.00 Immature Gran % 0 Nucleated RBC % 0 Sodium 140 Potassium 3.8 Chloride 103 Carbon Dioxide 30.3 Anion Gap 7 BUN 9 Creatinine 0.9 Estim Creat Clear Calc 126.9 eGFR > 60 BUN/Creatinine Ratio 10 L Glucose 153 H D Calculated Osmolality 281 Calcium 9.5 Corrected Calcium 9.5 Phosphorus 3.8 Magnesium 1.9 Total Bilirubin 0.3 AST 19 ALT 14 Alkaline Phosphatase 85 Total Protein 7.0 Albumin 4.0 Globulin 3.0 Albumin/Globulin Ratio 1.3 Quality Measures Quality Measures none Assessment & Plan Assessment Current Active Medications: Generic Name Dose Route Start Last Admin Trade Name Freq PRN Reason Stop Dose Admin Acetaminophen 650 mg 11/14/24 02:19 11/14/24 19:22 Acetaminophen 325 Mg Tablet PO 12/14/24 02:18 650 mg Q6H PRN Administration Fever >99.5 Acetaminophen 1,000 mg 11/14/24 02:22 Acetaminophen 500 Mg Tablet PO 12/14/24 02:21 Q6H PRN PAIN SCALE 1-3 (mild Dextrose 25 ml 11/14/24 02:16 Dextrose 50%-Water Inj 50 Ml Syringe IV 12/14/24 02:15 Q15MIN PRN BG 50-70 responsive npo pt Dextrose 50 ml 11/14/24 02:16 Dextrose 50%-Water Inj 50 Ml Syringe IV 12/14/24 02:15 Q15MIN PRN BG <50 OR BG <70 & pt unresponsive Glucagon 1 mg 11/14/24 02:16 Glucagon Inj 1 Mg Vial IM Q15MIN PRN BG <70, and no IV access Doxycycline Hyclate 100 mg/ 100 mls @ 100 mls/hr 11/15/24 21:00 11/16/24 09:15 Sodium Chloride IV 11/22/24 20:59 100 mls/hr BID JESSICA Administration Ceftriaxone Sodium/Dextrose 1 gm in 50 mls @ 100 mls/hr 11/15/24 21:00 11/16/24 09:16 Rocephin/D5w 1gm Iv Premix IV 11/22/24 20:59 100 mls/hr Q12HR JESSICA Administration Insulin Glargine 10 unit 11/16/24 09:00 11/16/24 09:16 Insulin Glargine (Lantus) 5 Unit/0.05 Ml (Per 5 Units) SC 12/16/24 08:59 10 unit QDAY JESSICA Administration Insulin Human Lispro 0 unit 11/14/24 23:07 11/16/24 07:57 Insulin Lispro (Admelog) 1 Unit/0.01 Ml Unit SC 12/14/24 16:59 3 unit ACHS JESSICA Administration Protocol Insulin Human Lispro 3 unit 11/15/24 08:00 11/16/24 07:57 Insulin Lispro (Admelog) 1 Unit/0.01 Ml Unit SC 12/15/24 07:59 3 unit TIDWM JESSICA Administration Morphine Sulfate 2 mg 11/14/24 12:25 11/14/24 13:29 Morphine Sulf Inj 10 Mg/Ml Vial IVP 11/19/24 02:18 2 mg Q4H PRN Administration PAIN SCALE 4-10(Mod-Sev Ondansetron HCl 4 mg 11/14/24 02:19 Ondansetron Inj 2 Mg/Ml Inj 2 Ml IVP 12/14/24 02:18 Q6H PRN NAUSEA OR VOMITING Protocol Plan Alden higginbotham is a 34-year-old male with no past medical history that was admitted for left foot infection/osteomyelitis of 4th digit. #Diabetic foot infection #Osteomyelitis of fourth metatarsal s/p debridement 11/14 Presents after left toe injury approximately 1 week prior to presentation. X-ray showed osteomyelitis of distal phalanx of fourth digit. S/p incision and drainage of left fourth toe with findings of necrotic skin and abscess. Vancomycin and Zosyn (11/14-11/15) ? General Surgery following, appreciate recommendations ? Daily packing changes per general surgery ? Ceftriaxone 2 g daily and doxycycline (11/15-) ? Blood cultures 11/13: (-) ? Wound culture 11/14: Pending. GPC on gram stain ? Given IR not present on weekends, possible PICC line placement Sunday, however will follow up with Dr. Kapoor recommendations. #New onset type 2 diabetes mellitus A1c 11.3%. ? Glargine 10 units, lispro 3 units TIDWM ? SSI ? Hypoglycemia protocol in place ? Registered dietitian consult ? Diabetic counseling #Acute kidney injury, resolved ? Avoid nephrotoxins ? Renally dose medications Hospital management: Disposition: pending ID recs and follow-up cultures Diet: carb consistent Lines: PIV DVT prophylaxis: SCDs CODE STATUS: full code Patient care was discussed with attending physician Dr. Lincoln Britt MD PGY-2 Attending Provider Attestation/Addendum I have examined the patient, reviewed labs and imaging findings, discussed the case with the resident(s), and reviewed entered orders. I agree with the plan of care as outlined in this note, with these additional summaries/recommendations: Patient seen at bedside. No acute overnight events. Patient has no new concerns today and reports he works as a [employer]. Discussed with patient that overall his blood sugars are improving. Patient is status post incision and drainage of left fourth toe with necrotic skin and abscess. General surgery following. Continue pain management and IV antibiotics. Intraoperative cultures pending and blood cultures negative at 48 hours. X-ray of the left foot unfortunately shows osteomyelitis of distal phalanx fourth digit. Consult infectious disease, recommendations appreciated. Discussed with patient we will likely have to proceed with PICC line for extended course of IV antibiotics versus possible oral route given that patient is young and area of osteomyelitis appears small. ESR 64 and CRP 3.3. Patient also diagnosed with new onset diabetes mellitus type 2. A1c 11.3%. Continue insulin sliding scale with Accu-Cheks. Target blood sugar 140-180 while hospitalized. Diabetic education. Acute kidney injury has resolved. Patient updated on the plan and agreement. All questions answered to satisfaction. Please see residents note for additional details and management. Dr. Lincoln MD
[2024-11-16 12:00] VITALS: BP 109/74; PULSE 87; RESP 16; TEMP 36.9; O2SAT 98
[2024-11-16 13:41] LABS: Vancomycin,Trough < 3.0 mcg/mL (5.0-10.0)
[2024-11-16 16:00] VITALS: BP 112/76; PULSE 88; RESP 18; TEMP 36.4; O2SAT 99
[2024-11-16 19:43] VITALS: BP 145/87; PULSE 88; RESP 18; TEMP 36.6; O2SAT 98
[2024-11-16 23:40] VITALS: BP 131/84; PULSE 79; RESP 18; TEMP 36.2; O2SAT 96
[2024-11-17] VITALS (11 sets, daily range): BP systolic 101–138; BP diastolic 60–95; PULSE 75–87; RESP 16–22; TEMP 36–36.3; O2SAT 97–99
--- NOTE | 2024-11-17 | XR_ITS ---
Examination: Ultrasound-guided needle placement right basilic vein. Dual-lumen central line placement (PICC line). Fluoroscopy AP chest, portable, single view Exam date and time:November 17, 2024 1224 hours INDICATIONS: Need for long-term intravenous antibiotic therapy for osteomyelitis A timeout was completed verifying correct patient, procedure, site, positioning Informed consent provided Technique: The patient's site was prepped and draped in sterile fashion. Maximum Sterile Barrier Technique used including cap, mask, sterile gown, sterile gloves, and sterile full body drape. If ultrasound technique used: sterile gel and sterile probe covers. Hand Hygiene performed using proper scrub, soap and water, or alcohol-based hand rub. Site right portable ultrasound apparatus utilized to confirm patency of the right basilic vein Utilizing ultrasonographic guidance successful 21-gauge needle puncture right basilic vein Ultrasound images recorded and stored. 5 cc 1% lidocaine administered for local anesthetic. Successful micropuncture with a 21-gauge needle is performed. 0.18 wire guide is then introduced into the SVC under fluoroscopic guidance. Dual-lumen catheter dilator is then introduced, followed by the catheter in the SVC and proper position under fluoroscopic guidance. Successful aspiration of blood and flushing with heparinized saline is then performed in the 2 venous limbs. The catheter sutured in place. Findings: Under fluoroscopy, the tip of the catheter is in good position in the vena cava. Portable chest x-ray, post line placement is ordered. Estimated blood loss 3 cc The patient tolerated the procedure well and was in stable and satisfactory condition at completion of the procedure Impression: Successful ultrasound-guided needle placement right basilic vein Successful placement of dual lumen central line, percutaneous Fluoroscopy 0.2 minute radiation dose 1.12 milligray 1 spot fluoroscopic chest. AP chest completion procedure demonstrates satisfactory position central line. May use central line.
[2024-11-17 06:13] LABS: Basophils # (Auto) 0.0 Thou/mm3 (0.0-0.2); Basophils % (Auto) 1 % (0-2.5); Eosinophils # (Auto) 0.1 Thou/mm3 (0.0-0.5); Eosinophils % (Auto) 2 % (0-10); Hematocrit 35.4 % (41.0-53.0); Hemoglobin 12.6 g/dL (13.5-16.0); Immature Granulocytes Auto 0.02 Thou/mm3 (0.00-0.00); Lymphocytes # (Auto) 2.1 Thou/mm3 (1.0-4.8); Lymphocytes % (Auto) 38 % (10-50); Mean Corpuscular HGB Conc 35.6 g/dl (31.0-37.0); Mean Corpuscular Hemoglobin 29.6 pg (25.0-35.0); Mean Corpuscular Volume 83 fL (80-100); Monocytes # (Auto) 0.6 Thou/mm3 (0.0-0.8); Monocytes % (Auto) 11 % (0-12); Neutrophils # (Auto) 2.8 Thou/mm3 (1.8-7.7); Neutrophils % (Auto) 49 % (37-80); Nucleated Red Blood Cell # 0.00 Thou/mm3 (0.00-0.00); Nucleated Red Blood Cell % 0 /100 WBC (0); Platelet Count 420 Thou/mm3 (140-440); RDW Standard Deviation 35.0 fL (35.1-43.9); Red Blood Count 4.25 Miln/mm3 (4.50-5.90); White Blood Count 5.7 Thou/mm3 (3.8-10.6)
[2024-11-17 06:39] LABS: Alanine Aminotransferase 14 U/L (10-49); Albumin, Serum 4.2 gm/dL (3.5-5.0); Albumin/Globulin Ratio 1.7 (1.2-2.2); Alkaline Phosphatase 85 U/L (46-116); Anion Gap 7 (7-16); Aspartate Amino Transferase 18 U/L (0-34); BUN/Creatinine Ratio 14 Ratio (12-20); Bilirubin,Total 0.3 mg/dL (0.3-1.2); Blood Urea Nitrogen 11 mg/dL (9-23); Calcium 10.4 mg/dL (8.3-10.6); Calcium (Corrected) 10.4 mg/dL (8.5-10.1); Carbon Dioxide 30.6 mMol/L (20.0-31.0); Chloride 100 mMol/L (98-107); Creatinine (Component) 0.8 mg/dL (0.6-1.3); Estimated Creatinine Clearance 142.8 mL/min (>60); Globulin 2.5 gm/dL (2.3-3.5); Glucose 172 mg/dL (74-106); Osmolality,Calculated 279 (275-295); Phosphorous 4.4 mg/dL (2.4-5.1); Potassium 3.8 mMol/L (3.4-5.1); Sodium 138 mMol/L (136-145); Total Protein 6.7 gm/dL (5.7-8.2); eGFR > 60 See Note
[2024-11-17] MEDS: INSULIN LISPRO (AdmeLOG) 1 UNIT/0.01 ML UNIT SC ×3 (07:37→20:33)
[2024-11-17] MEDS: INSULIN LISPRO (AdmeLOG) 1 UNIT/0.01 ML UNIT 3 UNIT SC (07:37)
[2024-11-17] MEDS: INSULIN GLARGINE (Lantus) 5 UNIT/0.05 ML (PER 5 UNITS) 10 UNIT SC (08:34)
[2024-11-17] MEDS: cefTRIAXone/D5w 1gm IV premix 1 GM/50 ML BAG IV ×2 (08:35→12:07)
--- NOTE | 2024-11-17 08:37 | PC.SS ---
SS follow up note; SS contacted Tammi the financial counselor to check status on patient's medi-kip, she reported that she met with patient on Sunday and informed SS that patient is pending the [facility] patient case coordinator to contact patient. SS informed Dr. Newman that at the time patient only has [facility]. SS will stand by for further needs.
[2024-11-17] MEDS: DOXYCYCLINE INJ 100 MG in SODIUM CHLORIDE 0.9% (POP) 100 ML IV (09:02)
--- NOTE | 2024-11-17 09:25 | PD.IDPROG ---
Subjective Subjective Interval history: cx noted. low dose rocephin in play. Exam Vital Signs Temp Pulse Resp BP Pulse Ox O2 Del Method O2 Flow Rate 97 F 75 17 115/79 98 Room Air 5 11/17/24 08:00 11/17/24 08:00 11/17/24 08:00 11/17/24 08:00 11/17/24 08:00 11/17/24 08:00 11/14/24 10:15 Narrative Exam osteo of foot. cx with ox s staphL foot wrapped. removed wrapping as was old. no strike thru noted Objective - Internal Medicine Labs 11/17/24 04:30 11/17/24 04:30 Labs: Laboratory Results - last 24 hr 11/16/24 11/17/24 12:39 04:30 WBC 5.7 RBC 4.25 L Hgb 12.6 L Hct 35.4 L MCV 83 MCH 29.6 MCHC 35.6 RDW Std Deviation 35.0 L Plt Count 420 D Neut % (Auto) 49 Lymph % (Auto) 38 [place] % (Auto) 11 Eos % (Auto) 2 Baso % (Auto) 1 Neut # (Auto) 2.8 Lymph # (Auto) 2.1 [place] # (Auto) 0.6 Eos # (Auto) 0.1 Baso # (Auto) 0.0 Immature Gran # (Auto) 0.02 H Absolute Nucleated RBC 0.00 Immature Gran % 0 Nucleated RBC % 0 Sodium 138 Potassium 3.8 Chloride 100 Carbon Dioxide 30.6 Anion Gap 7 BUN 11 Creatinine 0.8 Estim Creat Clear Calc 142.8 eGFR > 60 BUN/Creatinine Ratio 14 Glucose 172 H Calculated Osmolality 279 Calcium 10.4 Corrected Calcium 10.4 H Phosphorus 4.4 Total Bilirubin 0.3 AST 18 ALT 14 Alkaline Phosphatase 85 Total Protein 6.7 Albumin 4.2 Globulin 2.5 Albumin/Globulin Ratio 1.7 Vancomycin Trough < 3.0 L Assessment & Plan A&P Narrative iv rx likely preferred, but higher dose rocephin. ok to stop doxy as no mrsa noted. only ox s staph rx to be thru 12/26 with rocephin 2 gm iv daily. not 1 gm and stop the doxy get weekly cbc, renal panel, esr on iv rx and remove line at end of rx' if crp normal tomorrow, can forego iv rx and go with keflex 1000 tid for 6 weeks with monthly cbc, renal panel, esr and f/u with podiatry. Time Spent With Patient Time: Total time spent is greater than 50% in coordination of care (as documented) at patient's floor/unit and/or counseling patient:
--- NOTE | 2024-11-17 11:38 | ESCONSULT_ITS ---
RE: MELO RODRIGUEZ : 1990 DATE OF CONSULTATION: 11/17/2024 REFERRING PHYSICIAN: Chris Moe MD REASON FOR CONSULTATION: Osteomyelitis of the left 4th toe. 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 He lives by himself in a rented room in a house presumably. His medical problems including newly discovered diabetes, A1c of 11.3 on admission, but he has no prior history of diabetes and was not taking any treatment. He has no other medical problems. PAST SURGICAL HISTORY: Surgery consists only of incision and drainage of an abscess on the right 4th toe on 11/14/[address] Hernández. ALLERGIES: NO KNOWN DRUG ALLERGIES. IMMUNIZATIONS: Last tetanus is on admission. He does not take a flu shot. He has not had a COVID vaccine. He has not had pneumococcal vaccination. FAMILY HISTORY: Positive for diabetes and hypertension. SOCIAL HISTORY: He lives alone in a rented room and was a part-time espinoza. PHYSICAL EXAMINATION: On exam, the patient is tender in the left 4th toe as suggested previously. Prior drainage is noted. He has no swelling or discoloration noted. Review of imaging shows destroyed left 4th digit distally. The distal digits are hard to see on x-ray, but with destruction of the toe, we can assume that this is probably the case. If he has amputation, the treatment should be transitioned to oral therapy, but if he does not, then we can probably continue IV therapy, but we will check a CRP tomorrow. If it is improved significantly from the prior value the other day of 3.3, then we may look at transitioning him to oral therapy with Keflex 1000 mg t.i.d. for 6 weeks. He will need to follow up with podiatry and his primary care team. He will improve his diabetic control with an A1c under 7 and he may have a better chance of success if that is the case. If his toe needs to come off, the zoning engineer could possibly do it at a later time. DT: 11::34 TT: 11:27:00 Ref: [id number] - TID: [id number] MTDD
--- NOTE | 2024-11-17 12:27 | ESPR_ITS ---
Documentation for date of: 11/17/24 Subjective Subjective Interval history: No acute overnight events. Seen and examined at bedside and patient resting comfortably in bed. Given that patient underwent I&D, infectious disease was consulted and recommended higher dose rocephin and DC doxycycline with IV antibiotics through 12/26, weekly CBC, renal panel, ESR while on IV antibiotics. However, will follow-up with repeat CRP tomorrow and if normal possible to forego IV antibiotics and start oral medications for 6 weeks. Also recommended to follow-up with podiatry. At this time, will proceed hold off on PICC line placement given possibility to transition to PO antibiotics and follow-up with CRP tomorrow. Exam Vital Signs Temp Pulse Resp BP Pulse Ox O2 Del Method O2 Flow Rate 97 F 75 17 115/79 98 Room Air 5 11/17/24 08:00 11/17/24 08:00 11/17/24 08:00 11/17/24 08:00 11/17/24 08:00 11/17/24 08:00 11/14/24 10:15 Narrative Exam General: AOx3, no acute distress, able to speak full sentences HEENT: NC/AT, mucous membranes moist, bilateral sclera anicteric Cardiovascular: regular rate and rhythm, S1/S2 present, no murmurs appreciated Pulmonary: clear to auscultation bilaterally, no rales/rhonchi/wheezes Abdominal: soft, non-tender, non-distended, no rebound/guarding, normal bowel sounds present Musculoskeletal: normal ROM, no peripheral edema Skin: RLE wrapped s/p I&D; warm and dry, intact, no rashes Neuro: CN II-XII intact, no focal deficits Objective Labs 11/17/24 04:30 11/17/24 04:30 Labs: Laboratory Results - last 24 hr 11/16/24 11/17/24 12:39 04:30 WBC 5.7 RBC 4.25 L Hgb 12.6 L Hct 35.4 L MCV 83 MCH 29.6 MCHC 35.6 RDW Std Deviation 35.0 L Plt Count 420 D Neut % (Auto) 49 Lymph % (Auto) 38 [place] % (Auto) 11 Eos % (Auto) 2 Baso % (Auto) 1 Neut # (Auto) 2.8 Lymph # (Auto) 2.1 [place] # (Auto) 0.6 Eos # (Auto) 0.1 Baso # (Auto) 0.0 Immature Gran # (Auto) 0.02 H Absolute Nucleated RBC 0.00 Immature Gran % 0 Nucleated RBC % 0 Sodium 138 Potassium 3.8 Chloride 100 Carbon Dioxide 30.6 Anion Gap 7 BUN 11 Creatinine 0.8 Estim Creat Clear Calc 142.8 eGFR > 60 BUN/Creatinine Ratio 14 Glucose 172 H Calculated Osmolality 279 Calcium 10.4 Corrected Calcium 10.4 H Phosphorus 4.4 Total Bilirubin 0.3 AST 18 ALT 14 Alkaline Phosphatase 85 Total Protein 6.7 Albumin 4.2 Globulin 2.5 Albumin/Globulin Ratio 1.7 Vancomycin Trough < 3.0 L Quality Measures Quality Measures none Assessment & Plan Assessment Current Active Medications: Generic Name Dose Route Start Last Admin Trade Name Freq PRN Reason Stop Dose Admin Acetaminophen 650 mg 11/14/24 02:19 11/14/24 19:22 Acetaminophen 325 Mg Tablet PO 12/14/24 02:18 650 mg Q6H PRN Administration Fever >99.5 Acetaminophen 1,000 mg 11/14/24 02:22 Acetaminophen 500 Mg Tablet PO 12/14/24 02:21 Q6H PRN PAIN SCALE 1-3 (mild Dextrose 25 ml 11/14/24 02:16 Dextrose 50%-Water Inj 50 Ml Syringe IV 12/14/24 02:15 Q15MIN PRN BG 50-70 responsive npo pt Dextrose 50 ml 11/14/24 02:16 Dextrose 50%-Water Inj 50 Ml Syringe IV 12/14/24 02:15 Q15MIN PRN BG <50 OR BG <70 & pt unresponsive Glucagon 1 mg 11/14/24 02:16 Glucagon Inj 1 Mg Vial IM Q15MIN PRN BG <70, and no IV access Ceftriaxone Sodium 2 gm/ 50 mls @ 100 mls/hr 11/18/24 09:00 Sodium Chloride IV 11/25/24 08:59 QDAY JESSICA Insulin Glargine 10 unit 11/16/24 09:00 11/17/24 08:34 Insulin Glargine (Lantus) 5 Unit/0.05 Ml (Per 5 Units) SC 12/16/24 08:59 10 unit QDAY JESSICA Administration Insulin Human Lispro 0 unit 11/14/24 23:07 11/17/24 07:37 Insulin Lispro (Admelog) 1 Unit/0.01 Ml Unit SC 12/14/24 16:59 3 unit ACHS JESSICA Administration Protocol Insulin Human Lispro 3 unit 11/15/24 08:00 11/17/24 07:37 Insulin Lispro (Admelog) 1 Unit/0.01 Ml Unit SC 12/15/24 07:59 3 unit TIDWM JESSICA Administration Morphine Sulfate 2 mg 11/14/24 12:25 11/14/24 13:29 Morphine Sulf Inj 10 Mg/Ml Vial IVP 11/19/24 02:18 2 mg Q4H PRN Administration PAIN SCALE 4-10(Mod-Sev Ondansetron HCl 4 mg 11/14/24 02:19 Ondansetron Inj 2 Mg/Ml Inj 2 Ml IVP 12/14/24 02:18 Q6H PRN NAUSEA OR VOMITING Protocol Plan Alden higginbotham is a 34-year-old male with no past medical history that was admitted for left foot infection/osteomyelitis of 4th digit. #Diabetic foot infection #Osteomyelitis of fourth metatarsal s/p debridement 11/14 Presents after left toe injury approximately 1 week prior to presentation. X- ray showed osteomyelitis of distal phalanx of fourth digit. S/p incision and drainage of left fourth toe with findings of necrotic skin and abscess. Vancomycin and Zosyn (11/14-11/15) Doxycycline (11/15-11/17) ? General Surgery following, appreciate recommendations ? Infectious disease following, appreciate recommendations ? Follow-up repeat CRP, and if normal can forego IV antibiotics and DC with keflex 1 g TID x6 weeks ? Daily packing changes per general surgery ? Ceftriaxone 2 g daily (11/15-) ? Blood cultures 11/13: Negative ? Wound culture 11/14: MSSA #New onset type 2 diabetes mellitus A1c 11.3%. ? Glargine 15 units, lispro 5 units TIDWM ? SSI ? Hypoglycemia protocol in place ? Registered dietitian consult ? Diabetic counseling #Acute kidney injury, resolved ? Avoid nephrotoxins ? Renally dose medications Hospital management: Disposition: PICC line placement, pending CRP and possible switch to PO antibiotics Diet: carb consistent Lines: PIV DVT prophylaxis: SCDs CODE STATUS: full code ----- Plan discussed with attending physician Dr. Lincoln Newman MD PGY-1 Internal Medicine Attending Provider Attestation/Addendum I have examined the patient, reviewed labs and imaging findings, discussed the case with the resident(s), and reviewed entered orders. I agree with the plan of care as outlined in this note, with these additional summaries/recommendations: Patient seen at bedside. No acute overnight events. Patient reports the pain in his foot is resolving. Discussed with patient that overall his blood sugars are improving. Patient is status post incision and drainage of left fourth toe with necrotic skin and abscess. General surgery following. Continue pain management and IV antibiotics. Intraoperative culture grew staph aureus and blood cultures negative at 48 hours. X-ray of the left foot unfortunately shows osteomyelitis of distal phalanx fourth digit. Infectious disease following. Patient is status post PICC line this morning although we have been informed by social welfare administrator that patient does not have insurance that would cover home health or SNF placement. Discussed with infectious disease and we will repeat CRP in the morning and if normal patient can likely be discharged on oral antibiotics for 6 weeks. If this is the case then we will need to remove PICC line prior to discharge. ESR 64 and CRP 3.3. Patient also diagnosed with new onset diabetes mellitus type 2. A1c 11.3%. Continue insulin sliding scale with Accu-Cheks. Target blood sugar 140-180 while hospitalized. Diabetic education. Acute kidney injury has resolved. Patient updated on the plan and agreement. All questions answered to satisfaction. Please see residents note for additional details and management. Dr. Lincoln MD
[2024-11-17] MEDS: HEPARIN SOD LOCK SYR 100 UNIT/ML 500 UNIT STFIELD (12:45)
--- NOTE | 2024-11-17 12:53 | PC.CC ---
Addendum entered by Jerzy Tafoya RN 11/17/24 19:20: 1430: spoke to Dr. Stark with information below. SW will have to inform patient of costs. Per Dr. Stark, waiting on BC results hopefully by tomorrow and will know if patient can do oral abx instead. Original Note: 1211: Called [facility] spoke to Holli, pt's out of pocket cost for 38 days which includes daily copay, medication, and supplies is $2212.00 Left message for April EARLY with that information to provide to the patient. 1135: spoke to April EARLY regarding pt having presumptive medical and MD order for PICC line insertion with IV insertion. Concern of no insurance coverage and out of pocket expense for patient expressed. April asked if i can explain it to the MD. Called Dr. Stark, made him aware of the situation. He asked that i get a quote of the out of pocket expense for patient if no insurance coverage.
[2024-11-17] MEDS: LIDOCAINE INJ PF 1% 30 ML VIAL INFL (13:03)
--- NOTE | 2024-11-17 15:39 | PC.SS ---
SS follow up note; Transfer Nurse Jerzy contacted [facility] spoke to Holli, pt's out of pocket cost for 38 days which includes daily copay, medication, and supplies is $2212.00. SS followed up with patient in regards to copay and patient reported that at the time he is not able to pay for copay. SS will update Team A. SS will stand by for further needs.
[2024-11-17] MEDS: INSULIN LISPRO (AdmeLOG) 1 UNIT/0.01 ML UNIT 5 UNIT SC (17:22)
--- NOTE | 2024-11-17 19:10 | PC.NURSE ---
pt. stated took dressing off to l. foot when he came to see him,rewrap l. foot.
[2024-11-18] VITALS: BP 111/69; PULSE 83; RESP 20; TEMP 36.6; O2SAT 98
--- NOTE | 2024-11-18 | XR_ITS ---
Examination: Venous access removal of nontunneled central line Date and time: November 18, 2024 12:00 PM INDICATIONS: No longer needed for central line TECHNIQUE AND FINDINGS: Informed consent provided. Timeout performed. Skin prepped over the entrance site of the PICC line and sterile drape applied, hand hygiene Successful removal of the nontunneled central line. Pressure applied for control of hemostasis Estimated blood loss 0 cc IMPRESSION: Successful venous assess removal of nontunneled central line
[2024-11-18 04:00] VITALS: BP 112/71; PULSE 75; RESP 18; TEMP 36.2; O2SAT 97
[2024-11-18 05:54] LABS: Basophils # (Auto) 0.0 Thou/mm3 (0.0-0.2); Basophils % (Auto) 1 % (0-2.5); Eosinophils # (Auto) 0.1 Thou/mm3 (0.0-0.5); Eosinophils % (Auto) 2 % (0-10); Hematocrit 37.5 % (41.0-53.0); Hemoglobin 12.9 g/dL (13.5-16.0); Immature Granulocytes Auto 0.01 Thou/mm3 (0.00-0.00); Lymphocytes # (Auto) 1.8 Thou/mm3 (1.0-4.8); Lymphocytes % (Auto) 32 % (10-50); Mean Corpuscular HGB Conc 34.4 g/dl (31.0-37.0); Mean Corpuscular Hemoglobin 28.7 pg (25.0-35.0); Mean Corpuscular Volume 83 fL (80-100); Monocytes # (Auto) 0.5 Thou/mm3 (0.0-0.8); Monocytes % (Auto) 9 % (0-12); Neutrophils # (Auto) 3.2 Thou/mm3 (1.8-7.7); Neutrophils % (Auto) 57 % (37-80); Nucleated Red Blood Cell # 0.00 Thou/mm3 (0.00-0.00); Nucleated Red Blood Cell % 0 /100 WBC (0); Platelet Count 475 Thou/mm3 (140-440); RDW Standard Deviation 35.2 fL (35.1-43.9); Red Blood Count 4.50 Miln/mm3 (4.50-5.90); White Blood Count 5.7 Thou/mm3 (3.8-10.6)
[2024-11-18 06:25] LABS: Alanine Aminotransferase 18 U/L (10-49); Albumin, Serum 4.3 gm/dL (3.5-5.0); Albumin/Globulin Ratio 1.4 (1.2-2.2); Alkaline Phosphatase 91 U/L (46-116); Anion Gap 7 (7-16); Aspartate Amino Transferase 20 U/L (0-34); BUN/Creatinine Ratio 18 Ratio (12-20); Bilirubin,Total 0.3 mg/dL (0.3-1.2); Blood Urea Nitrogen 16 mg/dL (9-23); C-Reactive Protein 0.8 mg/dL (0.0-0.9); Calcium 9.9 mg/dL (8.3-10.6); Calcium (Corrected) 9.9 mg/dL (8.5-10.1); Carbon Dioxide 31.1 mMol/L (20.0-31.0); Chloride 102 mMol/L (98-107); Creatinine (Component) 0.9 mg/dL (0.6-1.3); Estimated Creatinine Clearance 126.9 mL/min (>60); Globulin 3.0 gm/dL (2.3-3.5); Glucose 186 mg/dL (74-106); Osmolality,Calculated 285 (275-295); Potassium 4.6 mMol/L (3.4-5.1); Sodium 140 mMol/L (136-145); Total Protein 7.3 gm/dL (5.7-8.2); eGFR > 60 See Note
[2024-11-18 07:02] LABS: Hepatitis C Antibody Non Reactive (Non React)
[2024-11-18 07:48] VITALS: BP 110/68; PULSE 78; RESP 18; TEMP 36.1; O2SAT 99
[2024-11-18] MEDS: INSULIN LISPRO (AdmeLOG) 1 UNIT/0.01 ML UNIT SC ×3 (07:54→17:10)
[2024-11-18] MEDS: INSULIN LISPRO (AdmeLOG) 1 UNIT/0.01 ML UNIT 5 UNIT SC ×3 (07:55→17:10)
[2024-11-18] MEDS: cefTRIAXone 2 GM in SODIUM CHLORIDE 0.9% (Popper) 50 ML IV (08:39)
[2024-11-18] MEDS: INSULIN GLARGINE (Lantus) 5 UNIT/0.05 ML (PER 5 UNITS) 15 UNIT SC (08:39)
[2024-11-18 09:30] LABS: HIV (1&2) Antibody Rapid Non-Reactive
[2024-11-18 11:46] VITALS: BP 132/80; PULSE 83; RESP 20; TEMP 36.2; O2SAT 98
--- NOTE | 2024-11-18 13:38 | PC.SS ---
SS follow up note; SS contacted the [facility] to schedule patient an appointment, however did not answer, SS left voicemail and provided patient's contact information. SS also emailed the [facility] to follow up with patient, SS will provide [facility] contact number to patient. SS will stand by for further needs.
--- NOTE | 2024-11-18 13:40 | PC.NURSE ---
Instructed and demonstrated wound care to patient. Patient states he will be the one performing wound care. Patient able to verbalize steps to performing wound care. Patient has no other questions.
[2024-11-18] MEDS: MORPHINE SULF INJ 10 MG/ML VIAL 2 MG IVP (13:41)
--- NOTE | 2024-11-18 13:45 | PC.CC ---
Met w/ patient at bedside for DM and insulin education. 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 He is familiar with syringe use and abdominal site injections but is open to insulin pen use. Demonstrated insulin pen use and verified using teach back. Patient was able to appropriate assemble insulin pen, dial dose and perform injection into demonstration cube. He prefers insulin pen over syringe. He prefers CGM over fingerstick glucometer. Patient expressed concerns over CGM reading higher than fingersticks performed by nursing. Gave education on possible differences in reading between testing modalities including CGM directional arrows. PA for Freestyle Nette 3 Plus approved through 11/18/25. Patient plans to enroll in full scope Medi-[employer]. He requested assistance setting up an appointment for primary care at [facility]. Discussed with IDRIS Chen.
[2024-11-18 16:00] VITALS: BP 114/74; PULSE 88; RESP 20; TEMP 36.5; O2SAT 98
--- NOTE | 2024-11-18 16:10 | ESDS_ITS ---
<Statement entered by Joaquín Conklin MD - 11/20/24 13:59> I have discussed and was present for the essential components of the history, physical examination, diagnosis, and treatment plan with the resident. I agree with the patient's care as documented by the resident and amended herein by me. Joaquín Conklin MD FACP. Planned Discharge Date 11/18/24 DS: Providers Provider Date of admission: 11/14/24 02:18 Primary care physician: Physician No Primary/Family Admitting Provider: Chris Moe MD Attending Provider on Admission: Nitin Stark MD Consults: 11/14/24 02:17 Referral Registered Dietitian Routine Comment: Referral Registered Dietitian Routine Comment: 11/14/24 02:20 Consult to General Surgery Stat Comment: Consulting Provider: Brii Hernández 11/14/24 06:28 [facility] Referral - Nutrition Routine Comment: Positive screening for nutrition needs. 11/14/24 11:00 Consult to Infectious Diseases Routine Comment: Consulting Provider: Brice Kapoor Attending Provider on DC: Joaquín Conklin MD Discharging Provider: RESIDENT Adrian PGY-1 Anticipated date of discharge: 11/18/24 DS: Diagnosis Problem List Completed Was Problem List Reviewed/Reconciled?: Yes Hospital Course Hospital Course Hospital course: Mr. Alden Sow is a 34-year-old male with no significant past medical history who was admitted on 11/14/24 for a left foot infection with concern for osteomyelitis after injuring his foot at work when a box fell on it. He initially noted swelling, redness, worsening wound with foul odor, and systemic symptoms including fevers, chills, and inability to bear weight. On presentation to the ED, he was found to be hyperglycemic (A1c 11.3%), consistent with newly diagnosed type 2 diabetes mellitus, microcytic anemia, mild hyponatremia, acute kidney injury (Cr 1.6) and imaging concerning for osteomyelitis of the distal phalanx of the left fourth digit. He was started on IV vancomycin and Zosyn, had blood and wound cultures obtained, and General Surgery was consulted. He underwent incision and drainage (I&D) of the left fourth toe on 11/14, which revealed necrotic skin and an abscess. Intraoperative cultures grew MSSA; blood cultures remained negative. Postoperatively, antibiotics were transitioned to ceftriaxone with doxycycline, then doxycycline was stopped per Infectious Disease (ID) recommendation. ID recommended continuing IV antibiotics however, the plan was revised to monitor CRP for possible transition to oral antibiotics if CRP comes back normal. His acute kidney injury resolved with IV fluids and avoidance of nephrotoxins. His blood glucose levels were managed with glargine and lispro, with no episodes of severe hypo/hyperglycemia. He received diabetic education and dietitian counseling. Serial exams showed good wound healing with no new drainage and stable vital signs. Final CRP was 0.8, so the patient was cleared to transition to oral Keflex (cephalexin) for 6 weeks and discharge home. The PICC line was not required and was removed prior to discharge. The patient was comfortable performing wound care and insulin administration and was discharged in stable condition with podiatry and PCP follow-up arranged. Diagnoses During Admission #Left foot infection with osteomyelitis of left fourth toe (MSSA) #New onset type 2 diabetes mellitus (A1c 11.3%) #Acute kidney injury (resolved) #Microcytic anemia DC instructions: ? Keflex 1000mg three times daily - Insulin glargine 15 units injection daily ? Continue taking all other home medications as prescribed ? Follow-up with PCP within 1-2 weeks of discharge ? If you do not have a PCP, you can follow-up at the [facility] (you can call [phone] to make an appointment) ? If you wish to follow-up with Dr. Newman, schedule appointment on Sunday afternoons - Follow up with outpatient wound care clinic ? Return to ED if symptoms worsen or recurr ----- Plan discussed with attending physician Dr. Rubin Jeong MD PGY-1 Internal Medicine Patient seen and examined at bedside, no acute overnight events. I discussed and supervised with the data analysis intern physician who took care of this patient. I personally saw and examined the patient. I agree with most of the assessment and plan. Plan of care discussed with attending Dr. Conklin. Michi Vizcaino MD PGY-2 Time spent discussing smoking cessation with patient: more than 10 minutes Time Spent with Patient Time attestation: Total time spent providing and/or coordinating discharge services: Time spent: Greater than 30 minutes Home Health Home Health Referral Orders: 11/17/24 10:05 Home Health Referral Routine Reason For Exam: IV abx Home-Bound The patient must either because of illness or injury, need the aid of supportive devices such as crutches, canes, wheelchairs, and walkers; the use of special transportation; or the assistance of another person in order to leave their place of residence; OR have a condition such that leaving his or her home is medically contraindicated. In addition, the patient also meets the following criteria: patient is normally unable to leave the home and leaving home requires considerable taxing effort. Addendum to Home Health Certification Practitioner's Certification: I certify that the patient has been under my care in the hospital and the care of attending physician (see below). We had a pyst-yv-arlo encounter on (see date below). My clinical findings indicate that the patient is home bound per the above criteria and the Home Health Services noted in these orders are medically necessary. The primary reason for the [id number]-[id number] encounter is related to the fact that the patient requires home health services. Date Certifying [id number] Physician Encounter: 11/14/24 Physician's Name who will Assume Oversight for HH Services: Physician No Primary/Family CREEL HAND - Community Resources: No PT to Evaluate: No PT to evaluate and provide a treatmnet plan to increase patient's mobility and strength. Wound Care: No IV Therapy: Yes: rx to be thru 12/26 with rocephin 2 gm iv daily. not 1 gm and stop the doxy g IV Medication: Rocephin IV Dose: 2gm IV Frequency: QD IV Stop Date: 12/26/24 Discontinue PICC Line Once Treatment Complete: Yes RN Safety Evaluation: Yes RN to evaluate and create a plan of care that will produce positive outcomes. Palliative Treatment: No Palliative treatment and evaluate the need for hospice. Home Health Aide - Personal Care: No Home Health Aide to assist with any ADL's. Exam Vital Signs Temp Pulse Resp BP Pulse Ox O2 Del Method O2 Flow Rate 97.2 F 83 20 132/80 H 98 Room Air 5 11/18/24 11:46 11/18/24 11:46 11/18/24 11:46 11/18/24 11:46 11/18/24 11:46 11/18/24 11:46 11/14/24 10:15 Narrative Exam Physical Exam: -General: Alert, oriented x3, resting comfortably in no acute distress. -HEENT: Normocephalic, atraumatic, sclera anicteric. -Cardiac: Regular rate and rhythm, S1/S2 normal, no murmurs. -Pulmonary: Clear to auscultation bilaterally, no wheezes -Abdomen: Soft, non-tender, non-distended, normal bowel sounds, no rebound/guarding. -Extremities/Skin: Left foot dressing clean, dry, intact; no drainage, minimal swelling; surrounding skin warm, no erythema. No peripheral edema. Discharge Plan Plan Patient Disposition: HOME (Self Care) Care Plan Goals: ? Keflex 1000mg three times daily - Insulin glargine 15 units injection daily ? Continue taking all other home medications as prescribed ? Follow-up with PCP within 1-2 weeks of discharge ? If you do not have a PCP, you can follow-up at the [facility] (you can call [phone] to make an appointment) ? If you wish to follow-up with Dr. Newman, schedule appointment on Sunday afternoons - Follow up with outpatient wound care clinic ? Return to ED if symptoms worsen or recur Prescriptions/Referrals Prescriptions/Med Rec: New insulin glargine [Lantus Solostar U-100 Insulin] 100 unit/mL (3 mL) insulin pe n 15 unit subcut QPM Qty: 15 2RF (DME) pen needle, diabetic [Ultra-Thin II Ins Pen [place]] 29 gauge x 1/2 needle See Rx Instructions .Route Qty: 100 0RF Rx Instructions: As directed metformin 500 mg tablet 500 mg PO BID Qty: 60 0RF (DME) lancets 30 gauge misc See Rx Instructions .Route Qty: 100 0RF Rx Instructions: As directed (DME) blood-glucose meter [Blood Glucose Monitoring] Kit See Rx Instructions .Route Qty: 1 0RF Rx Instructions: As directed (DME) Blood Glucose Test Strip See Rx Instructions .Route Qty: 50 0RF Rx Instructions: As directed cephalexin 500 mg capsule 1,000 mg PO TID 42 Days Qty: 252 0RF (DME) FreeStyle Nette 3 Plus Sensor Device See Rx Instructions .Route Qty: 1 0RF Rx Instructions: As directed Referrals: No Primary/Family,Physician [Primary Care Provider] - Patient/Caregiver Discharge Instructions Print Language: Arabic Stand Alone Forms: Fadia Award Info., Patient Portal Info Letter Quality Discharge Quality Measures none
--- NOTE | 2024-11-18 18:04 | PC.NURSE ---
Patient stated [facility] to [facility] prescriptions to another pharmacy due to them closing down. Patient requested [facility] [address]. Called Dr. Vizcaino and notified him to transmit prescriptions to [facility] [address].
== END 2024-11-18 18:40 | disposition home or self-care (01) | DRG 344 ==
LOC: SERX 11-14 02:01 → S3SX 11-14 06:32 → SERHOLD 11-14 13:29
PROVIDERS: Internal Medicine Infectious Disease; Physician Assistant; Student in an Organized Health Care Education/Training Program; Surgery; Admitting Provider Internal Medicine; Emergency Provider Emergency Medicine; Visit Provider Student in an Organized Health Care Education/Training Program
DX: E11.69 Type 2 diabetes mellitus with other specified complication (principal); L02.612 Cutaneous abscess of left foot; E11.52 Type 2 diabetes mellitus with diabetic peripheral angiopathy with gangrene; E11.628 Type 2 diabetes mellitus with other skin complications; M86.172 Other acute osteomyelitis, left ankle and foot; N17.9 Acute kidney failure, unspecified; E11.65 Type 2 diabetes mellitus with hyperglycemia; E87.1 Hypo-osmolality and hyponatremia; D50.9 Iron deficiency anemia, unspecified; Z66 Do not resuscitate; S99.929A Unspecified injury of unspecified foot, initial encounter; W20.8XXA Other cause of strike by thrown, projected or falling object, initial encounter; Z79.4 Long term (current) use of insulin
CPT/HCPCS: 36415; 71045; 73660; 77001; 80053; 80202; 80307; 80320; 83036; 83605; 83735; 84100; 84145; 84484; 85025; 85652; 86140; 86703; 86803; 87040; 87070; 87075; 87077; 87186; 87205; 90471; 90715; 93005; 96365; 96366; 96367; 99285; A4217; A4649; C1751; C1894; J0696; J1642; J1815; J2250; J2270; J2543; J2704; J3010; J3370; J3490; J7030; J7050; A9270; G0480; J1596